=== PATIENT | male | born 1950 | race Caucasian/White ===

== ENCOUNTER 2021-07-01 17:29 | Inpatient (IN) | payer BC ==
[~2021-07-01] VITALS: Ht 182.9 cm; Wt 77.1 kg
[2021-07-01 17:30] VITALS: BP_SYST 140
--- NOTE | 2021-07-01 17:35 | NUR ---
PT TRIAGED IN PERSONAL VAN, PT IS COVID + AND NO ROOMS ARE AVAILABLE IN ER AT THIS TIME. FAMILY WITH PT.
[2021-07-01] MEDS ORDERED: ACET325T RC (18:52)
[2021-07-01] MEDS ORDERED: BISA5TAB10 PR (18:52)
[2021-07-01] MEDS ORDERED: PROC10TA13 PO (18:52)
[2021-07-01] MEDS ORDERED: LOSA25TA3 PO (18:52)
[2021-07-01] MEDS ORDERED: TRAZ-250 PO ×2 (18:52→23:50)
[2021-07-01] MEDS ORDERED: LORA-258 PO (18:52)
[2021-07-01] MEDS ORDERED: DILR3 IJ (18:52)
--- NOTE | 2021-07-01 18:52 | NUR ---
Medication reconciliation completed with information provided by Dr. Barraza. Any prior medication reconciliation on file was reviewed and corrected.
--- NOTE | 2021-07-01 19:40 | NUR ---
Received report from Gaetano KLINE Pt resting comfortably in bed VSS NAD at this time Will continue to monitor
[2021-07-01 20:13] LABS: ANION GAP 11 (5-15); CALCIUM 9.7 mg/dL (8.4-11.0); CHLORIDE 105 mmol/L (98-107); CREATININE 1.15 mg/dL (0.55-1.30); GLUCOSE 108 mg/dL (70-99); POTASSIUM 4.4 mmol/L (3.5-5.1); SODIUM SERUM 144 mmol/L (136-145); UREA NITROGEN, BLOOD 34 mg/dL (8-21)
[2021-07-01 20:14] LABS: GFR AFRICAN AMERICAN 81 mL/min (>90)
[2021-07-01] MEDS ORDERED: NACL 0.9% 1,000 ML IV ONE (20:15)
[2021-07-01 20:21] LABS: ALANINE AMINOTRANSFERASE 26 U/L (12-78); ALBUMIN 3.2 g/dL (3.4-4.8); ASPARTATE AMINOTRANSFERASE 23 U/L (10-37); LACTATE DEHYDROGENASE 214 U/L (85-227)
[2021-07-01 20:43] LABS: BASOPHILS % (AUTO) 0.7 % (0.0-2.0); HEMATOCRIT 40.5 % (36-54); HEMOGLOBIN 12.9 g/dL (14.0-18.0); LYMPHOCYTES # (AUTO) 0.8 K/uL (1.0-5.5); MEAN CORPUSCULAR HEMOGLOBIN 28 pg (27-31); MEAN CORPUSCULAR HGB CONC 32 % (32-36); MEAN CORPUSCULAR VOLUME 86 fL (79.0-98.0); MONOCYTES # (AUTO) 0.4 K/uL (0.0-1.0); MONOCYTES % (AUTO) 9.2 % (1.7-9.3); NEUTROPHILS # (AUTO) 3.5 K/uL (1.8-7.7); NEUTROPHILS % (AUTO) 74.1 % (40.0-70.0); PLATELET COUNT (AUTO) 202 K/uL (130-430); WHITE BLOOD COUNT (AUTO) 4.7 K/uL (4.8-10.8)
[2021-07-01 20:50] LABS: C-REACTIVE PROTEIN QUANT 2.8 mg/dL (0-0.5); TOTAL BILIRUBIN 0.2 mg/dL (0.0-1.0)
[2021-07-01 21:09] LABS: PROTHROMBIN TIME 10.8 SECS (9.5-12.5)
--- NOTE | 2021-07-01 21:29 | NUR ---
Received critical lab value from Mando Alvares @[id number]
[2021-07-01] MEDS ORDERED: AZITHROMYCIN 500 MG in NS 250 ML IV ONE (22:45)
[2021-07-01] MEDS ORDERED: DEXAMETHASONE SOD PHOSPHATE 4 MG/ML VIAL IVP ONE (22:45)
[2021-07-01] MEDS ORDERED: cefTRIAXone 1 GM IVPB PREMIX 50 ML IV ONE (22:45)
--- NOTE | 2021-07-01 23:06 | NUR ---
Received admitting orders from Dr. Diaz Tele Acute COVID, PNA 2L NC O2 D5 1/2NS 20MEQ KCL 100ml/hr Orders noted and carried out
--- NOTE | 2021-07-01 23:08 | NUR ---
Admit bed requested Patient will be admitted to care of Dr. Diaz Admitted to tele unit. Diagnosis: Acute COVID , PNA Inpatient (Yes or No) yes Observation (Yes or No) No Orientation concerns or request close to nursing station (Yes or No) No Covid Status + On vent or bipap No Isolation requirements COVID + Needs a sitter No From Home (Yes or if No enter name of facility) Home Requires Dialysis (Yes or No) No Med Rec Completed (Yes of No) no
[2021-07-01] MEDS ORDERED: KCL 20 mEq in D5/0.45NS 1000mL 1,000 ML IV SCH (23:15)
[2021-07-01] MEDS ORDERED: AZITHROMYCIN 500 MG/VIAL (ZITHROMAX) IV ONE (23:18)
[2021-07-01] MEDS ORDERED: [UNRECOGNIZED DRUG - CODE] IJ (23:41)
[2021-07-01] MEDS ORDERED: LOSA1TAB40 PO (23:41)
[2021-07-01] MEDS ORDERED: ALBUTEROL MDI INHALATION 8 GM INH INH PRN (23:45)
[2021-07-01] MEDS ORDERED: ENOXAPARIN SODIUM 40 MG/0.4 ML SYRINGE SUBCUT SCH (23:45)
[2021-07-01] MEDS ORDERED: HYDR-3919 PO (23:50)
[2021-07-01] MEDS ORDERED: LORA-259 PO (23:50)
[2021-07-02] VITALS (16 sets, daily range): BP systolic 127–157
[2021-07-02] MEDS ORDERED: ACETAMINOPHEN 650 MG SUPP.RECT RC PRN
--- NOTE | 2021-07-02 00:28 | NUR ---
Pt resting comfortably in bed AOX0 VSS NAD at this time Pending tele admission
--- NOTE | 2021-07-02 00:30 | NUR ---
pt admitted to room 123b. Pt in non verbal unable to make needs known. rr even and unlabored on 2l na. hob elevated. bed rails upx3. bed alarm on. pt on droplet precautions due to pt being covid positive. All other needs meet at this time. Will continue to monitor.
--- NOTE | 2021-07-02 01:14 | NUR ---
Pt admitted to tele 123b Nurse Velasquez at bedside
--- NOTE | 2021-07-02 02:00 | NUR ---
pt o2 sat 85-90 on 2L nc. Rt placed pt on High Flow 20L 45%. pt has open wounds to L ankle and R foot big toe. wound consult ordered.
--- NOTE | 2021-07-02 02:22 | NUR ---
CONSULTATION PAGED/CALLED Reason for Consultation: COVID 19 INFECTION Person Who was Notified: LISA Consulting Physician: CORINNA Motorcycle Tester Specialty: Ordering Physician: BRYANT
--- NOTE | 2021-07-02 06:00 | NUR ---
PT O2 SAT 85-88%. RT PAGED TO ASSESS PT O2.
[2021-07-02 07:08] LABS: BASOPHILS % (AUTO) 0.3 % (0.0-2.0); HEMATOCRIT 39.2 % (36-54); HEMOGLOBIN 12.4 g/dL (14.0-18.0); LYMPHOCYTES # (AUTO) 0.6 K/uL (1.0-5.5); LYMPHOCYTES % (AUTO) 11.1 % (20.5-51.5); MEAN CORPUSCULAR HEMOGLOBIN 27 pg (27-31); MEAN CORPUSCULAR HGB CONC 32 % (32-36); MEAN CORPUSCULAR VOLUME 87 fL (79.0-98.0); MONOCYTES # (AUTO) 0.2 K/uL (0.0-1.0); MONOCYTES % (AUTO) 4.3 % (1.7-9.3); NEUTROPHILS # (AUTO) 4.9 K/uL (1.8-7.7); NEUTROPHILS % (AUTO) 84.3 % (40.0-70.0); PLATELET COUNT (AUTO) 201 K/uL (130-430); RED BLOOD CELL COUNT(AUTO) 4.52 MIL/uL (4.2-6.2); RED CELL DISTRIBUTION WIDTH 14.7 % (9.0-15.0); WHITE BLOOD COUNT (AUTO) 5.8 K/uL (4.8-10.8)
--- NOTE | 2021-07-02 07:55 | NUR ---
PAGED DR HURTADO TO INFORM RE PT STATUS. PT IS GETTING O2 VIA HF AT 70% WITH O2 SAT OF 92% pLUS 15 PER VENTI MASK. NEW ORDERS RECEIVED AND CARRIED OUT.
[2021-07-02 08:13] LABS: CALCIUM 9.5 mg/dL (8.4-11.0); CREATININE 0.71 mg/dL (0.55-1.30); POTASSIUM 4.1 mmol/L (3.5-5.1)
--- NOTE | 2021-07-02 08:13 | NUR ---
CONSULTATION PAGED/CALLED Reason for Consultation: [] RESP FAIL Person Who was Notified: [] DR Maxim YORK Consulting Physician: [] DR Maxim YORK Caustic Preparer Specialty: [] PULMO Ordering Physician: [] DR HURTADO
--- NOTE | 2021-07-02 08:30 | NUR ---
DR YORK WAS HERE INFORMED MD OF 02 SAT AT 92 WITH 70% hf (30LI) AND 15 LI VENTI MASK. SEEN PATIENT.
[2021-07-02] MEDS: CHOLECALCIFEROL (VITAMIN D3) 5,000 UNIT TABLET PO SCH (09:00)
--- NOTE | 2021-07-02 09:07 | NUR ---
PT ON 100% 40LI HIGH FLOW , O2 SAT 91-93%.
[2021-07-02] MEDS: ENOXAPARIN SODIUM 30 MG/0.3 ML SYRINGE SUBCUT SCH ×2 (09:47→22:16)
[2021-07-02] MEDS: DEXAMETHASONE SOD PHOSPHATE 10 MG/ML VIAL IVP SCH ×2 (09:49→22:15)
--- NOTE | 2021-07-02 10:42 | NUR ---
PT'S CALLED. SHE WAS UPDATED WITH PT'S STATUS.
[2021-07-02] MEDS ORDERED: TOCILIZUMAB 400 MG in NS 100 ML IV ONE (11:00)
--- NOTE | 2021-07-02 12:00 | NUR ---
PT TRANSFERRED TO ICU BED 1, ENDORSED TO RAISA COURTNEY. PT ON STABLE CONDITION. STILL ON HIGH FLOW 100%.
--- NOTE | 2021-07-02 12:01 | NUR ---
received report from [facility] RN using SBAR method for continuity of care, patient is on venturi mask 15L, high flow 40L 100%, no signs of acute distress noted at this time, bed locked at lowest position, fall and safety precaution in place, will continue to monitor.
[2021-07-02] MEDS: KCL 20 mEq in D5/0.45NS 1000mL 1,000 ML IV SCH ×2 (12:20→22:19)
[2021-07-02 18:13] LABS: PROTHROMBIN TIME 10.7 SECS (9.5-12.5)
--- NOTE | 2021-07-02 19:20 | NUR ---
Opening notes Received report from endorsing morning shift RN for continuity of care. Patient is lying in bed in no signs of distress with IVF KChl 20mEq in D5 1/2NS @100 mL/hr. Patient's vital signs blood pressure 134/86, respirations 18, heart rate 50, and SPO2 99% in nonrebreather mask @ 15L. Bed is locked and in lowest position, fall and safety precautions is in place.
--- NOTE | 2021-07-02 22:00 | NUR ---
CXR completed to verify picc line. Per Picc line nurse Sukh, picc line EDI ok to use.
[2021-07-02] MEDS: AZITHROMYCIN 500 MG in NS 250 ML IV SCH (22:18)
[2021-07-02] MEDS: cefTRIAXone 1 GM in D5W 50 ML IV SCH (22:18)
[2021-07-02] MEDS ORDERED: DEXAMETHASONE SOD PHOSPHATE 10 MG/ML VIAL IVP SCH (22:45)
[2021-07-03] VITALS (25 sets, daily range): BP systolic 118–178
[2021-07-03 07:08] LABS: HEMATOCRIT 37.6 % (36-54); HEMOGLOBIN 12.3 g/dL (14.0-18.0); LYMPHOCYTES # (AUTO) 0.6 K/uL (1.0-5.5); LYMPHOCYTES % (AUTO) 7.9 % (20.5-51.5); MEAN CORPUSCULAR HEMOGLOBIN 29 pg (27-31); MEAN CORPUSCULAR HGB CONC 33 % (32-36); MEAN CORPUSCULAR VOLUME 87 fL (79.0-98.0); MONOCYTES # (AUTO) 0.3 K/uL (0.0-1.0); MONOCYTES % (AUTO) 3.6 % (1.7-9.3); NEUTROPHILS # (AUTO) 6.6 K/uL (1.8-7.7); NEUTROPHILS % (AUTO) 88.5 % (40.0-70.0); PLATELET COUNT (AUTO) 189 K/uL (130-430); RED BLOOD CELL COUNT(AUTO) 4.33 MIL/uL (4.2-6.2); RED CELL DISTRIBUTION WIDTH 14.6 % (9.0-15.0); WHITE BLOOD COUNT (AUTO) 7.4 K/uL (4.8-10.8)
[2021-07-03 08:37] LABS: ALBUMIN 2.7 g/dL (3.4-4.8); CALCIUM 8.9 mg/dL (8.4-11.0); CREATININE 0.65 mg/dL (0.55-1.30); POTASSIUM 4.4 mmol/L (3.5-5.1); TOTAL BILIRUBIN 0.1 mg/dL (0.0-1.0)
[2021-07-03] MEDS: DEXAMETHASONE SOD PHOSPHATE 10 MG/ML VIAL IVP SCH ×2 (08:53→20:57)
[2021-07-03] MEDS: CHOLECALCIFEROL (VITAMIN D3) 5,000 UNIT TABLET PO SCH (08:53)
[2021-07-03] MEDS: ENOXAPARIN SODIUM 30 MG/0.3 ML SYRINGE SUBCUT SCH ×2 (08:54→20:58)
[2021-07-03] MEDS: BALSAM PERU/CASTOR OIL 56.7 GM OINT...G. TP SCH (08:56)
--- NOTE | 2021-07-03 10:35 | NUR ---
FAMILY PT'S CALLED OVER THE PHONE, UPDATE ON HIS STATUS GIVEN. SHE WANTED TO SPEAK TO THE MARKER HAND, CALL TRANSFERRED TO [facility].
--- NOTE | 2021-07-03 11:10 | NUR ---
ELEV BP PAGED DR ALEXANDRE AND HE RETURNED THE CALL. REPORTED PT'S BLOOD PRESSURE 168/104, 150/97, PT'S HOME MEDS HAVE NOT BEEN TAKEN OR ORDERED. STATED HE WILL COME IN TO SEE THE PATIENT.
--- NOTE | 2021-07-03 11:29 | NUR ---
CM: s/w spouse/Wiam: Updated POC currently pt is in ICU with positive Covid and on o2 high flow 15 L. Said " the pt was on hospice but revoked . She requested pt going to snf [facility]. Spouse is recovering from Covid infection and is in home quarantine as well. I provided phone # to call ICU nurse/ CM for day to day update on the pt's status.
--- NOTE | 2021-07-03 12:08 | NUR ---
Dietitian Recommendations * Consider ST swallow eval * Consider EN support if PO diet is not indicated LP, RD Please refer to Nutrition Assessment for details. Addendum: 07/03/21 at [address] Amended: Links added.
[2021-07-03] MEDS ORDERED: TOCILIZUMAB 600 MG in NS 100 ML IV ONE (12:30)
--- NOTE | 2021-07-03 12:40 | NUR ---
MD DR ALEXANDRE AT BEDSIDE EXAMINING PT.
[2021-07-03] MEDS: KCL 20 mEq in D5/0.45NS 1000mL 1,000 ML IV SCH (12:46)
--- NOTE | 2021-07-03 12:50 | NUR ---
LUNCH. PT CONSUMED 25% PUREED PORK CHOPS, PUREED SQUASH, MASHED POTATOES WITH GRAVY, HALF A CUP OF STRAIN POTATO SOUP, ALMOST A CUP OF PUREED PEARS.
[2021-07-03] MEDS ORDERED: LOSARTAN POTASSIUM 50 MG TABLET (COZAAR) PO ONE (14:00)
--- NOTE | 2021-07-03 14:08 | NUR ---
pt placed on hi flow per dr polanco. 40%@30l, sat 94% hr 87 rr 25. rn aware, will cont to monitor. Addendum: 07/03/21 at 1409 by Mery Do RT Amended: Links added.
--- NOTE | 2021-07-03 14:17 | NUR ---
ELEV BP. MEDICATED PT WITH COZAAR 50 MG TAB, MIXED WITH ENSURE. PT TOLERATED WELL.
--- NOTE | 2021-07-03 18:07 | NUR ---
DIET SERVED DINNER TRAY AND FED PT, HE CONSUMED 30% OF PUREED CHERRI VEG, PARISH STEAK, MASHED POTATOES WITH GRAVY, OVER HALF CUP OF STRAIN CREAM CHICKEN, HALF A BOTTLE OF STRAWBERRY ENSURE, A CUP OF VANILLA ICE CREAM.
--- NOTE | 2021-07-03 19:10 | NUR ---
Opening notes Received report from endorsing morning shift RN for continuity of care. Patient is lying in bed with no signs of distress with IVF KChl 20mEq in D5 1/2 NS @ 100 mL/hr connected to the RU PICC line. PICC line is clean and dry. Patient's vital signs blood pressure 149/87, heart rate 88, respirations 26, and SPO2 96% with high flow nasal cannula 40% 30L. Bed is locked and in lowest position, fall and safety precautions is in place.
--- NOTE | 2021-07-03 20:55 | NUR ---
Called Dr. Elam for orders regarding patient's blood pressure. Dr. Elam called back at 2121, new order given.
[2021-07-03] MEDS ORDERED: cloNIDine HCL 0.1 MG TABLET PO SCH (21:30)
[2021-07-03] MEDS: cloNIDine HCL 0.1 MG TABLET PO SCH (22:41)
[2021-07-03] MEDS: cefTRIAXone 1 GM in D5W 50 ML IV SCH (22:41)
[2021-07-03] MEDS: AZITHROMYCIN 500 MG in NS 250 ML IV SCH (22:42)
[2021-07-03] MEDS: LORazepam 2 MG/ML VIAL IVP PRN (23:27)
[2021-07-04] VITALS (24 sets, daily range): BP systolic 125–171
[2021-07-04] MEDS: KCL 20 mEq in D5/0.45NS 1000mL 1,000 ML IV SCH ×3 (02:55→23:17)
[2021-07-04] MEDS: cloNIDine HCL 0.1 MG TABLET PO SCH ×4 (05:27→20:25)
[2021-07-04 06:34] LABS: BASOPHILS % (AUTO) 0.2 % (0.0-2.0); HEMATOCRIT 35.6 % (36-54); HEMOGLOBIN 11.6 g/dL (14.0-18.0); LYMPHOCYTES # (AUTO) 0.6 K/uL (1.0-5.5); MEAN CORPUSCULAR HEMOGLOBIN 28 pg (27-31); MEAN CORPUSCULAR HGB CONC 33 % (32-36); MEAN CORPUSCULAR VOLUME 86 fL (79.0-98.0); MONOCYTES # (AUTO) 0.2 K/uL (0.0-1.0); MONOCYTES % (AUTO) 2.5 % (1.7-9.3); NEUTROPHILS % (AUTO) 88.3 % (40.0-70.0); PLATELET COUNT (AUTO) 169 K/uL (130-430); RED BLOOD CELL COUNT(AUTO) 4.12 MIL/uL (4.2-6.2); RED CELL DISTRIBUTION WIDTH 14.7 % (9.0-15.0); WHITE BLOOD COUNT (AUTO) 6.8 K/uL (4.8-10.8)
[2021-07-04 08:04] LABS: ALBUMIN 2.6 g/dL (3.4-4.8); CALCIUM 8.7 mg/dL (8.4-11.0); CREATININE 0.68 mg/dL (0.55-1.30); POTASSIUM 4.2 mmol/L (3.5-5.1); TOTAL BILIRUBIN 0.2 mg/dL (0.0-1.0)
[2021-07-04] MEDS: LOSARTAN POTASSIUM 50 MG TABLET (COZAAR) PO SCH (08:24)
[2021-07-04] MEDS: CHOLECALCIFEROL (VITAMIN D3) 5,000 UNIT TABLET PO SCH (08:24)
[2021-07-04] MEDS: DEXAMETHASONE SOD PHOSPHATE 10 MG/ML VIAL IVP SCH ×2 (08:26→20:25)
[2021-07-04] MEDS: ENOXAPARIN SODIUM 30 MG/0.3 ML SYRINGE SUBCUT SCH ×2 (08:27→20:26)
[2021-07-04] MEDS: BALSAM PERU/CASTOR OIL 56.7 GM OINT...G. TP SCH (09:00)
[2021-07-04] MEDS: LORazepam 2 MG/ML VIAL IVP PRN (17:31)
--- NOTE | 2021-07-04 19:24 | NUR ---
Opening Notes: Got bedside report from Vera, patient was asleep. D5 1/2 NS running at 100 mL/hr, on 3 L NC, suction is working, bed at the lowest level, appropriate side rails up, call light within reach.
[2021-07-04] MEDS: AZITHROMYCIN 500 MG in NS 250 ML IV SCH (22:18)
[2021-07-04] MEDS: cefTRIAXone 1 GM in D5W 50 ML IV SCH (23:08)
[2021-07-05] VITALS (25 sets, daily range): BP systolic 126–174
[2021-07-05] MEDS: cloNIDine HCL 0.1 MG TABLET PO SCH ×3 (00:22→12:00)
--- NOTE | 2021-07-05 07:22 | NUR ---
Closing notes: Gave bedside report to Freddie, patient is calm and sleeping, changed dressing last night, patient had 3 BM and 6 voids, patient ate 75% of his dinner, D5 1/2 with 20 MEQ potassium NS running at 100 mL, on 3 L of oxygen, bed at the lowest level, oxygen and suction working, appropriate side rails up, brakes are locked.
[2021-07-05 08:47] LABS: ALBUMIN 2.6 g/dL (3.4-4.8); CREATININE 0.54 mg/dL (0.55-1.30); POTASSIUM 4.5 mmol/L (3.5-5.1); TOTAL BILIRUBIN 0.3 mg/dL (0.0-1.0)
[2021-07-05] MEDS: CHOLECALCIFEROL (VITAMIN D3) 5,000 UNIT TABLET PO SCH (08:57)
[2021-07-05] MEDS: ENOXAPARIN SODIUM 30 MG/0.3 ML SYRINGE SUBCUT SCH ×2 (08:57→21:04)
[2021-07-05] MEDS: DEXAMETHASONE SOD PHOSPHATE 10 MG/ML VIAL IVP SCH ×2 (08:57→21:03)
[2021-07-05] MEDS: KCL 20 mEq in D5/0.45NS 1000mL 1,000 ML IV SCH ×2 (08:59→17:12)
[2021-07-05] MEDS: BALSAM PERU/CASTOR OIL 56.7 GM OINT...G. TP SCH (08:59)
[2021-07-05] MEDS: LOSARTAN POTASSIUM 50 MG TABLET (COZAAR) PO SCH ×2 (08:59→21:02)
[2021-07-05] MEDS: PANTOPRAZOLE SODIUM 40 MG TAB PO SCH (09:00)
--- NOTE | 2021-07-05 11:10 | NUR ---
Pt AOx1. Pt is very contracted and needs to be fed/turned. Pt seemed to tolerate diet but was unwilling to eat certain foods. Recommend a swallow eval for pt. Pt does not blink to yes or no questions or nod head to questions. Difficulty communicating with pt. Pt is aphasic. Vital signs are stable except for HR (bradycardic) but appears to be asymptomatic. Blood pressure stable.
--- NOTE | 2021-07-05 14:47 | NUR ---
LADIES' HAT TRIMMER DR RICCI AT BEDSIDE, EXAMINED PT. PT'S STATUS MAY BE DOWNGRADED IF OK WITH PMD.
--- NOTE | 2021-07-05 15:30 | NUR ---
WOUND EVALUATION: Late note for 07/05/2021 at 1530 secondary to patient care. Wound Consult received from . Thank you, , for the consult. Patient received in a [place] Bed, awake, confused, aphasic. Patient is unable to turn in bed independently. David Score is a 10. Past Medical History: Hypertension, CVA, Parkinson's disease, Dementia. Recent Labs: WBC 6.8, RBC 4.12, hemoglobin 11.6, hematocrit 35.6, BUN 19, creatinine 0.54, glucose 142, calcium 8.0, alkaline phosphatase 43, albumin 2.6, D-dimer 2590, fibrinogen 442. Microbiology: Blood culture results x2 in progress. Rapid results indicated positive for Covid-19. Intrinsic factors that delay wound healing: Hypoalbuminemia, hyperglycemia, COVID-19. Extrinsic factors that delay wound healing: Immobility. Wound Assessment: 1, Right Great Toe: Unstageable pressure ulcer, present on admission. Wound bed has 100% black tissue. No odor, no drainage. Periwound intact. Wound measures 1.1 cm x 1.1 cm. Recommend: [place] site with Betadine. Allowed to air dry. Perform site care daily. 2. Right Lateral Malleolus: Unstageable pressure ulcer, present on admission. Wound bed has 70% pink tissue, 25% yellow tissue, 10% black tissue. No odor, no drainage. Periwound intact. Wound measures 4.4 cm x 1.7 cm x 0.1 cm. Recommend: Cleanse wound with normal saline. Apply moisture barrier cream to periwound. Apply Venelex ointment to wound bed. Cover with foam dressing. Perform wound care daily, and as needed for dressing soiling or dislodgment. Offload site at all times. 3. SacralCoccygeal area: Stage II pressure ulcer, present on admission. Wound bed has 100% red tissue. No odor, no drainage. Periwound intact. Wound measures 0.2 cm x 0.2 cm. Recommend: Cleanse wound with normal saline. Apply moisture barrier cream to periwound. Apply Venelex ointment to wound bed. Cover with foam dressing. Perform wound care daily, and as needed for dressing soiling or dislodgment. Offload involved area with pillows at all times. Also recommend: Reposition patient side to side only every 2 hours with one pillow underneath left pelvis and one pillow underneath right pelvis (facilitate turning by placing additional pillow underneath left pelvis for 2 hours, then rotate same pillow and place underneath right pelvis for 2 hours, repeat side to side every 2 hours. Off-load pressure areas with pillows for pressure re-distribution. Offload, elevate and float bilateral heels with one pillow lengthwise under each extremity at all times. Perform skin care and monitor skin integrity Q shift. Use moisture barrier cream on buttocks and other moisture susceptible areas QID and as needed for soiling. Place patient on a low air-loss mattress.
--- NOTE | 2021-07-05 15:39 | NUR ---
Tobacco Feeder Catcher In an effort to clarify previous hospice provider information, BORA Cordoba contacted patient's Chiquita . Chiquita shared the following; -Patient was receiving hospice care at home from [facility] -According to patient's , PCP Dr. West ([facility] [phone]) would like patient to be transferred to SNF when stable for discharge. - Patient's resides in [place], and due to struggles with driving long distances, she is requesting for SNF placement to be close to home if available - Patient's also shared PCP requested to speak to treating or discharging doctor to discuss discharge plans when available. SKIN FORMER will continue to be available as needed
--- NOTE | 2021-07-05 16:48 | NUR ---
ST EVALUATION COMPLETED. ST TX NOT INDICATED AT THIS TIME. RECOMMEND ALTERNATIVE MEANS OF NUTRITION DUE TO DECREASED SWALLOW FUNCTION AND SAFETY. PT MAY TOLERATE SMALL PORTIONS OF PUREE/THIN LIQUID FOR ORAL GRATIFICATION WITH 1:1 FEEDER AND FULL ASPIRATION PRECAUTIONS
[2021-07-05] MEDS: hydrALAZINE HCL 20 MG/ML VIAL IVP PRN (18:27)
--- NOTE | 2021-07-05 19:20 | NUR ---
OPENING NOTES: RECEIVED BEDSIDE REPORT FROM SRAVANI. PATIENT IS AWAKE, PATIENT HAS BEEN SWEATING AND SHAKING, D5 1/2 NS WITH 20 MEQ OF POTASSIUM RUNNING AT 100 ML/HR, DRESSINGS WERE CHANGED BY SRAVANI AND RAMÓN JARAMILLO 2L, BED AT THE LOWEST LEVEL, BRAKES ARE LOCKED, APPROPRIATE SIDE RAILS UP, CALL LIGHT WITHIN REACH.
--- NOTE | 2021-07-05 19:28 | NUR ---
WOODENWARE ASSEMBLER STATES PT SHOULD GET ALTERNATIVE NUTRITION WELL BEING FED FOR ORAL GRATIFICATION, PERHAPS A PEG FOR CONTINUOUIS FEEDS/PT TOLERATES FOOD BUT DIFFICULT TO TELL IF HE ASPIRAES, COUGH IS WEAK.//MW
--- NOTE | 2021-07-05 20:15 | NUR ---
PATIENT IS DIAPHORETIC AND SHAKING, TEMP WAS 98.7 WITH THE TEMPORAL THERMOMETER, GAVE THE PATIENT A PARTIAL BED BATH WITH COOL WATER, SUCTIONED PATIENT MOUTH, PATIENT WAS VERY AGITATED AND GROANING.
[2021-07-05] MEDS: LORazepam 2 MG/ML VIAL IVP PRN (20:48)
[2021-07-05] MEDS: AZITHROMYCIN 500 MG in NS 250 ML IV SCH (22:04)
[2021-07-05] MEDS: cefTRIAXone 1 GM in D5W 50 ML IV SCH (22:44)
[2021-07-06] VITALS (21 sets, daily range): BP systolic 119–160
[2021-07-06] MEDS: KCL 20 mEq in D5/0.45NS 1000mL 1,000 ML IV SCH ×3 (05:10→23:53)
[2021-07-06 06:32] LABS: ALBUMIN 2.7 g/dL (3.4-4.8); CALCIUM 8.5 mg/dL (8.4-11.0); CREATININE 0.58 mg/dL (0.55-1.30); POTASSIUM 4.4 mmol/L (3.5-5.1); TOTAL BILIRUBIN 0.4 mg/dL (0.0-1.0)
[2021-07-06 07:09] LABS: BASOPHILS % (AUTO) 0.1 % (0.0-2.0); HEMATOCRIT 38.9 % (36-54); HEMOGLOBIN 12.8 g/dL (14.0-18.0); LYMPHOCYTES # (AUTO) 0.8 K/uL (1.0-5.5); LYMPHOCYTES % (AUTO) 12.8 % (20.5-51.5); MEAN CORPUSCULAR HEMOGLOBIN 28 pg (27-31); MEAN CORPUSCULAR HGB CONC 33 % (32-36); MEAN CORPUSCULAR VOLUME 85 fL (79.0-98.0); MONOCYTES # (AUTO) 0.2 K/uL (0.0-1.0); MONOCYTES % (AUTO) 3.4 % (1.7-9.3); NEUTROPHILS % (AUTO) 83.7 % (40.0-70.0); PLATELET COUNT (AUTO) 170 K/uL (130-430); RED BLOOD CELL COUNT(AUTO) 4.56 MIL/uL (4.2-6.2); RED CELL DISTRIBUTION WIDTH 14.1 % (9.0-15.0); WHITE BLOOD COUNT (AUTO) 5.9 K/uL (4.8-10.8)
--- NOTE | 2021-07-06 07:38 | NUR ---
INITIAL BED SIDE SHIFT REPORT RECEIVED FROM NIGHT RN FOR CONTINUITY OF CARE
[2021-07-06] MEDS: PANTOPRAZOLE SODIUM 40 MG TAB PO SCH (08:29)
[2021-07-06] MEDS: DEXAMETHASONE SOD PHOSPHATE 10 MG/ML VIAL IVP SCH ×2 (08:29→21:52)
[2021-07-06] MEDS: CHOLECALCIFEROL (VITAMIN D3) 5,000 UNIT TABLET PO SCH (08:29)
[2021-07-06] MEDS: LOSARTAN POTASSIUM 50 MG TABLET (COZAAR) PO SCH ×2 (08:31→21:53)
[2021-07-06] MEDS: ENOXAPARIN SODIUM 30 MG/0.3 ML SYRINGE SUBCUT SCH ×2 (08:35→21:56)
[2021-07-06] MEDS: BALSAM PERU/CASTOR OIL 56.7 GM OINT...G. TP SCH (09:00)
[2021-07-06] MEDS ORDERED: hydrALAZINE HCL 20 MG/ML VIAL IVP ONE (09:30)
[2021-07-06] MEDS ORDERED: hydrALAZINE HCL 20 MG/ML VIAL IVP PRN (09:30)
--- NOTE | 2021-07-06 11:12 | NUR ---
TRANSFER UPDATE TRANSFERRED PT TO [facility], RM 105A BEDSIDE SHIFT REPORT GIVEN TO SWEETIE RN, MARISA KLINE. PT IS A&O X4 & ON ROOM AIR, O2 SAT 94%; VSs ARE WNR, AFEBRILE. NO S&S OF DISTRESS & NO PAIN (VERBALIZED). Addendum: 07/06/21 at 1407 by Daya Stroud RN INFORMATIONS/DATA ENTERED IN INCORRECT PT
[2021-07-06] MEDS: LORazepam 2 MG/ML VIAL IVP PRN ×3 (11:56→20:28)
--- NOTE | 2021-07-06 14:02 | NUR ---
Dietitian Recommendations * Continue puree diet for oral gratification. * Monitor provision of EN support. * Consider Glucerna 1.5 @65 mL/hr w/ free water flush 200 mL Q4h Provides: 2340 kcals/day, 129 g protein/day and 2384 mL free water/day Meets: 101% of lower kcal requirements, 111% of upper protein requirements and 104% of lower fluid requirements. Please refer to Nutrition F/U note for details. Signed: 07/06/21 at 1403 by Hortencia DUNCAN <Co-Signature Required> Co-Signed: 07/06/21 at [address]
--- NOTE | 2021-07-06 14:02 | NUR ---
Nutrition F/U Admitting Diagnosis Acute COVID, pulmonary nodular amyloidosis Reviewed Pertinent Medical/Surgical Hx Medical Record Other Medical History Comment: PMH: CVA, dementia, and Parkinson's Dz per physician notes Pt also found w/ severe COVID-19 pneumonia and hypoxia per physician notes SARS-CoV-2 Ag (Rapid) Positive 07/[address] bedside visit deferred d/t COVID airborne isolation precautions. Per EMR review, pt on 2 L NC. David score 10, wounds noted on L ankle, posterior coccyx and R toe. Abdomen is soft w/ hyperactive BS. LBM x7 07/05. Pt w/ poor PO intake of 27% x7 meal records. Pt had swallow evaluation on 07/05, ST recommends alternate means of nutrition w/ small amounts of puree/thin liquids and 1:1 feeder for oral gratification. Per ICU rounds, pt is nonverbal, no drips, and has cardiology consult d/t arrhythmias. Pt is not eating well and refusing medications w/ applesauce. Pt was previously in hospice care, RN to ask pts family if they want GT placement. Pt is not yet meeting nutritional needs. Current Diet Order/Nutrition Support NPO x1 day Patient/Significant Other Unable To Verbalize Education Provided Not Indicated Pertinent Medications remdesivir, lovenox, decadron, zinc, VIT D3, KCl/D5%/1/2NS at 100 ml/hr, protonix Pertinent Labs Na 134 L, BG 122 H, Alb 2.7 L Height (Feet) 6 feet Height (Inches) 0.00 inches Weight (Pounds) 170 pounds no changes since 07/03 Weight (Calculated Kilograms) 77.737497 kilograms Patient Weight 77.111 kg Body Mass Index 23.05 kg/m2 %IBW 96 [place]/Adjusted Body Weight 178#/80.9 kg Recent Weight Change Unable to verify Weight Status Appropriate Food Allergies Unable to verify (*ongoing) Estimated Energy Expenditure (kcals/day) 1902-9421 (30-35 kcal/kg CBW d/t acute critical illness) (*ongoing) Estimated Protein Required (g/day) 93-116 (1.2-1.5 gm/kg CBW d/t acute critical illness) (*ongoing) Estimated Fluid Required (l/day) 2.3-2.7 (1 ml/kcal/day for GERIAT maintenance) Problem/Etiology/Signs/Symptoms Increased nutritional needs R/T metabolic demands AEB estimated nutritional requirements for acute critical illness. (*ongoing) Risk for aspiration R/T weakness/compromised respiratory status AEB RN report, use of NRBM, and current pureed diet order. (pt is now NPO per speech therapist recommendations) Expected Outcomes/Goals - Monitor provision of nutrition support, appetite, and PO intakes w/ goal of pt meeting at least 50% of estimated nutritional needs, labs trending WNL, normal GI function, and skin integrity/wt maintenance Dietitian Recommendations * Continue puree diet for oral gratification. * Monitor provision of EN support. * Consider Glucerna 1.5 @65 mL/hr w/ free water flush 200 mL Q4h Provides: 2340 kcals/day, 129 g protein/day and 2384 mL free water/day Meets: 101% of lower kcal requirements, 111% of upper protein requirements and 104% of lower fluid requirements. Follow Up High Risk: F/U in 2-3days Follow Up By Jul 09, 2021 Signed: 07/06/21 at 1402 by Hortencia DUNCAN <Co-Signature Required> Co-Signed: 07/06/21 at [address]
--- NOTE | 2021-07-06 14:07 | NUR ---
UPDATE RECEIVED CONSULT ORDER (MD MONTES DE OCA) FROM DR HURTADO
--- NOTE | 2021-07-06 16:32 | NUR ---
update Pt's , Chiquita, wanted to change code status to MODIFIED CODE. wishes/wants pt to have chest compression but no intubation
[2021-07-06] MEDS: hydrALAZINE HCL 20 MG/ML VIAL IVP PRN (17:26)
--- NOTE | 2021-07-06 19:23 | NUR ---
ENDORSEMENT End of shift report given to night RN for continuity of care
[2021-07-06] MEDS ORDERED: ATROPINE SULFATE 0.4 MG/ML VIAL IVP PRN (21:00)
[2021-07-06] MEDS: AZITHROMYCIN 500 MG in NS 250 ML IV SCH (23:52)
[2021-07-06] MEDS: cefTRIAXone 1 GM in D5W 50 ML IV SCH (23:52)
[2021-07-07] VITALS (24 sets, daily range): BP systolic 126–161
[2021-07-07 06:43] LABS: BASOPHILS % (AUTO) 0.3 % (0.0-2.0); HEMATOCRIT 40.4 % (36-54); HEMOGLOBIN 13.4 g/dL (14.0-18.0); LYMPHOCYTES # (AUTO) 0.5 K/uL (1.0-5.5); LYMPHOCYTES % (AUTO) 10.4 % (20.5-51.5); MEAN CORPUSCULAR HEMOGLOBIN 28 pg (27-31); MEAN CORPUSCULAR HGB CONC 33 % (32-36); MEAN CORPUSCULAR VOLUME 86 fL (79.0-98.0); MONOCYTES # (AUTO) 0.1 K/uL (0.0-1.0); MONOCYTES % (AUTO) 1.4 % (1.7-9.3); NEUTROPHILS % (AUTO) 87.9 % (40.0-70.0); PLATELET COUNT (AUTO) 168 K/uL (130-430); RED BLOOD CELL COUNT(AUTO) 4.71 MIL/uL (4.2-6.2); WHITE BLOOD COUNT (AUTO) 4.6 K/uL (4.8-10.8)
[2021-07-07 09:24] LABS: ALBUMIN 2.8 g/dL (3.4-4.8); CALCIUM 8.8 mg/dL (8.4-11.0); CREATININE 0.62 mg/dL (0.55-1.30); TOTAL BILIRUBIN 0.5 mg/dL (0.0-1.0)
[2021-07-07] MEDS: DEXAMETHASONE SOD PHOSPHATE 10 MG/ML VIAL IVP SCH (10:03)
[2021-07-07] MEDS: PANTOPRAZOLE SODIUM 40 MG TAB PO SCH (10:04)
[2021-07-07] MEDS: LOSARTAN POTASSIUM 50 MG TABLET (COZAAR) PO SCH ×2 (10:04→20:12)
[2021-07-07] MEDS: CHOLECALCIFEROL (VITAMIN D3) 5,000 UNIT TABLET PO SCH (10:05)
[2021-07-07] MEDS: THEOPHYLLINE ANHYDROUS 200 MG CAP.ER.24H PO SCH ×2 (10:05→20:12)
[2021-07-07] MEDS: ENOXAPARIN SODIUM 30 MG/0.3 ML SYRINGE SUBCUT SCH ×2 (10:06→20:14)
[2021-07-07] MEDS: BALSAM PERU/CASTOR OIL 56.7 GM OINT...G. TP SCH (10:12)
[2021-07-07] MEDS: KCL 20 mEq in D5/0.45NS 1000mL 1,000 ML IV SCH ×2 (10:15→21:01)
--- NOTE | 2021-07-07 19:25 | NUR ---
Opening Notes: Received bedside report from Juan, patient was awake, patient has an NG tube with Jevity running at 30cc and hr, skin is intact around NG tube, patient on 4 L NC, has D5 1/2 NS running at 20 MEQ potassium at 100 mL/hr, condom cath applied with clear yellow urine, peeled and peaked wound on left ankle, left toe, right toe, and sacral, new dressing applied today with pictures taken, suction working, bed at the lowest level, appropriate side rails up, call light with reach.
[2021-07-07] MEDS: LORazepam 2 MG/ML VIAL IVP PRN (23:10)
[2021-07-07] MEDS: cefTRIAXone 1 GM in D5W 50 ML IV SCH (23:10)
[2021-07-08] VITALS (25 sets, daily range): BP systolic 122–173
[2021-07-08] MEDS: KCL 20 mEq in D5/0.45NS 1000mL 1,000 ML IV SCH ×2 (07:15→16:41)
[2021-07-08 07:27] LABS: HEMATOCRIT 37.8 % (36-54); HEMOGLOBIN 12.5 g/dL (14.0-18.0); LYMPHOCYTES # (AUTO) 0.9 K/uL (1.0-5.5); MEAN CORPUSCULAR HEMOGLOBIN 28 pg (27-31); MEAN CORPUSCULAR HGB CONC 33 % (32-36); MEAN CORPUSCULAR VOLUME 85 fL (79.0-98.0); MONOCYTES # (AUTO) 0.5 K/uL (0.0-1.0); NEUTROPHILS # (AUTO) 4.4 K/uL (1.8-7.7); PLATELET COUNT (AUTO) 202 K/uL (130-430); RED BLOOD CELL COUNT(AUTO) 4.43 MIL/uL (4.2-6.2); RED CELL DISTRIBUTION WIDTH 14.4 % (9.0-15.0); WHITE BLOOD COUNT (AUTO) 5.8 K/uL (4.8-10.8)
[2021-07-08 07:36] LABS: ALBUMIN 2.7 g/dL (3.4-4.8); CALCIUM 8.7 mg/dL (8.4-11.0); CREATININE 0.6 mg/dL (0.55-1.30); POTASSIUM 3.8 mmol/L (3.5-5.1); TOTAL BILIRUBIN 0.1 mg/dL (0.0-1.0)
[2021-07-08] MEDS: PANTOPRAZOLE SODIUM 40 MG TAB PO SCH (09:45)
[2021-07-08] MEDS: THEOPHYLLINE ANHYDROUS 200 MG CAP.ER.24H PO SCH ×2 (09:45→21:40)
[2021-07-08] MEDS: BALSAM PERU/CASTOR OIL 56.7 GM OINT...G. TP SCH (09:46)
[2021-07-08] MEDS: LOSARTAN POTASSIUM 50 MG TABLET (COZAAR) PO SCH ×2 (09:46→21:40)
[2021-07-08] MEDS: CHOLECALCIFEROL (VITAMIN D3) 5,000 UNIT TABLET PO SCH (09:46)
[2021-07-08] MEDS: ENOXAPARIN SODIUM 30 MG/0.3 ML SYRINGE SUBCUT SCH ×2 (09:47→21:43)
[2021-07-08] MEDS: DEXAMETHASONE SOD PHOSPHATE 10 MG/ML VIAL IVP SCH (09:48)
--- NOTE | 2021-07-08 14:37 | NUR ---
Nutrition F/U Admitting Diagnosis Acute COVID, pulmonary nodular amyloidosis Reviewed Pertinent Medical/Surgical Hx Medical Record Primary RN Medical History Comment: PMH: CVA, dementia, and Parkinson's Dz, HTN, multiple strokes per physician notes Pt also found w/ severe COVID-19 pneumonia (improving), hypoxia and transient bradycardia per physician notes SARS-CoV-2 Ag (Rapid) Positive 07/[address] bedside visit deferred d/t COVID airborne isolation precautions. Per EMR review, pt on 4 L NC. David score 8, wounds noted on L ankle, posterior coccyx and R toe. Abdomen is soft w/ active BS. LBM x1 07/07. Pt had 10 mL GRV today. Per ICU rounds, pt is repeating covid test awaiting possible PEG placement. Pt is contracted r/t Parkinsons Dz. Current TF prescription meets only 47% of lower caloric needs and 49% of lower protein needs. Pt would benefit from increase in goal rate. Current Diet Order/Nutrition Support Jevity 1.5 @30 mL/hr, 0 mL free water flush via NGT x2 days Patient/Significant Other Unable To Verbalize Education Provided Not Indicated Pertinent Medications lovenox, decadron, zinc, VIT D3, KCl/D5%/1/2NS at 100 ml/hr, protonix Pertinent Labs Na 135 L, BG 114 H, Alb 2.7 L Height (Feet) 6 feet Height (Inches) 0.00 inches Weight (Pounds) 170 pounds no changes since 07/03 Weight (Calculated Kilograms) 77.840724 kilograms Patient Weight 77.111 kg Body Mass Index 23.05 kg/m2 %IBW 96 [place]/Adjusted Body Weight 178#/80.9 kg Recent Weight Change Unable to verify Weight Status Appropriate Food Allergies Unable to verify (*ongoing) Estimated Energy Expenditure (kcals/day) 0908-5913 (30-35 kcal/kg CBW d/t acute critical illness) (*ongoing) Estimated Protein Required (g/day) 93-116 (1.2-1.5 gm/kg CBW d/t acute critical illness) (*ongoing) Estimated Fluid Required (l/day) 2.3-2.7 (1 ml/kcal/day for GERIAT maintenance) Problem/Etiology/Signs/Symptoms Increased nutritional needs R/T metabolic demands AEB estimated nutritional requirements for acute critical illness. (*ongoing) Risk for aspiration R/T weakness/compromised respiratory status AEB RN report, use of NRBM, and current pureed diet order. (*no longer applicable) Expected Outcomes/Goals - Monitor TF tolerance and intakes w/ goal of pt meeting at least 90% of estimated nutritional needs, labs trending WNL, normal GI function, and skin integrity/wt maintenance Dietitian Recommendations Jevity 1.5 @65 mL/hr w/ 200 mL free water flush Q4h Provides: 2340 kcals/day, 100 g protein/day and 2386 mL free water/day Meets: 101% of lower caloric needs, 108% of lower protein needs and 104% of fluid needs Follow Up High Risk: F/U in 2-3 days Signed: 07/08/21 at 1438 by Hortencia DUNCAN <Co-Signature Required> Co-Signed: 07/08/21 at [address]
--- NOTE | 2021-07-08 14:38 | NUR ---
Dietitian Recommendations Jevity 1.5 @65 mL/hr w/ 200 mL free water flush Q4h Provides: 2340 kcals/day, 100 g protein/day and 2386 mL free water/day Meets: 101% of lower caloric needs, 108% of lower protein needs and 104% of fluid needs LP, RD Please refer to Nutrition F/U for details. Signed: 07/08/21 at 1439 by Hortencia DUNCAN <Co-Signature Required> Co-Signed: 07/08/21 at [address]
--- NOTE | 2021-07-08 15:20 | NUR ---
Spoke w/ patient's - She would like the patient to go to [facility] when he is stable. She would like a facility close to her home in [place], she is aware there are no SNF's in [place]. She is agreeable to a facility where Dr Diaz goes.
--- NOTE | 2021-07-08 19:30 | NUR ---
Received report and assumed care. Covid +, NC [address] tolerating well with O2 sats 92-94%. Contracted; requires frequent reposition. Condom catheter in place and draining to gravity. NGT feeding in place and infusing Jevity at 40 cc/h. will continue to monitor.
--- NOTE | 2021-07-08 20:58 | NUR ---
RT Pt was destating to 88% on 5L NC. Pt was mouth breathing and couldn't understand when I told him to breath through his nose.switched to a simle mask @ 6L and pt is now 93-94%.
--- NOTE | 2021-07-08 21:30 | NUR ---
Dr Diaz at bedside for evaluation. Information regarding GT feeding provided. Dr Diaz reported to this nurse "go easy with increasing the rate of feeding". GT feeding rate will remain at 40 tonight. patient tolerating well. Goal 65 cc/h.
[2021-07-08] MEDS: cefTRIAXone 1 GM in D5W 50 ML IV SCH (22:37)
[2021-07-09] VITALS (25 sets, daily range): BP systolic 121–159
[2021-07-09] MEDS: LORazepam 2 MG/ML VIAL IVP PRN ×2 (00:12→12:12)
--- NOTE | 2021-07-09 00:30 | NUR ---
Assessment completed; repositioned for comfort l
[2021-07-09] MEDS: KCL 20 mEq in D5/0.45NS 1000mL 1,000 ML IV SCH ×3 (03:15→23:27)
[2021-07-09 06:44] LABS: BASOPHILS % (AUTO) 0.1 % (0.0-2.0); HEMATOCRIT 41.5 % (36-54); HEMOGLOBIN 13.5 g/dL (14.0-18.0); LYMPHOCYTES # (AUTO) 0.7 K/uL (1.0-5.5); LYMPHOCYTES % (AUTO) 4.5 % (20.5-51.5); MEAN CORPUSCULAR HEMOGLOBIN 28 pg (27-31); MEAN CORPUSCULAR HGB CONC 33 % (32-36); MEAN CORPUSCULAR VOLUME 86 fL (79.0-98.0); MONOCYTES # (AUTO) 0.8 K/uL (0.0-1.0); MONOCYTES % (AUTO) 4.9 % (1.7-9.3); NEUTROPHILS # (AUTO) 14.6 K/uL (1.8-7.7); NEUTROPHILS % (AUTO) 90.5 % (40.0-70.0); PLATELET COUNT (AUTO) 217 K/uL (130-430); RED BLOOD CELL COUNT(AUTO) 4.85 MIL/uL (4.2-6.2); RED CELL DISTRIBUTION WIDTH 14.3 % (9.0-15.0); WHITE BLOOD COUNT (AUTO) 16.1 K/uL (4.8-10.8)
[2021-07-09 08:00] LABS: ALBUMIN 3.2 g/dL (3.4-4.8); CALCIUM 9.3 mg/dL (8.4-11.0); CREATININE 1.07 mg/dL (0.55-1.30); POTASSIUM 4.2 mmol/L (3.5-5.1); TOTAL BILIRUBIN 0.2 mg/dL (0.0-1.0)
[2021-07-09] MEDS ORDERED: DEXAMETHASONE SOD PHOSPHATE 10 MG/ML VIAL ONE (10:57)
[2021-07-09] MEDS: THEOPHYLLINE ANHYDROUS 200 MG CAP.ER.24H PO SCH ×2 (11:03→20:54)
[2021-07-09] MEDS: CHOLECALCIFEROL (VITAMIN D3) 5,000 UNIT TABLET PO SCH (11:04)
[2021-07-09] MEDS: PANTOPRAZOLE SODIUM 40 MG TAB PO SCH (11:05)
[2021-07-09] MEDS: LOSARTAN POTASSIUM 50 MG TABLET (COZAAR) PO SCH ×2 (11:05→20:55)
[2021-07-09] MEDS: DEXAMETHASONE SOD PHOSPHATE 10 MG/ML VIAL IVP SCH (11:07)
[2021-07-09] MEDS: ENOXAPARIN SODIUM 30 MG/0.3 ML SYRINGE SUBCUT SCH ×2 (11:09→20:54)
[2021-07-09] MEDS: BALSAM PERU/CASTOR OIL 56.7 GM OINT...G. TP SCH (11:24)
[2021-07-10] VITALS (24 sets, daily range): BP systolic 88–150
--- NOTE | 2021-07-10 02:30 | NUR ---
PT DESATURATING TO 82% SUCTIONED ORALLY OBTAINED LARGE THICK YELLOW SECRETIONS, PUT ON OXYMASK AT 10L, TURNED AND REPOSITION TO COMFORT, CLEANED AND CHANGED PAD HAD BM SMALL AMOUNT AND INCONTINENT OF URINE. STILL DESATURATING PAGED RT NT SUCTIONED DONE AND PUT ON NRB 15lL REMAINS SATING 56 SUCTIONED CONTINUED AND UNSUCCESSFULL STILL DESATURATING. RT PUT ON HFNC AT 40l 100% WITH NRB 15L BACK UP SATS REMAIN AT 62%
--- NOTE | 2021-07-10 03:23 | NUR ---
DR. NAYAN GARCIA PAGED AT THIS TIME FOR ORDERS. SPOKE WITH ALYSON AT THE EXCHANGE.
--- NOTE | 2021-07-10 03:23 | NUR ---
PAGED DR RICCI PT REMAINS SATS AT 62%. AWAITING TO REPLY.
--- NOTE | 2021-07-10 04:03 | NUR ---
AGAIN SECOND TIME PAGED DR RICCI RE-CONDITION CHANGED SATS-62 AND BP 88/55MMHG
--- NOTE | 2021-07-10 04:03 | NUR ---
DR. SPICER SECOND PAGE TO AT THIS TIME FOR ORDERS. SPOKE WITH JACQUES AT THE EXCHANGE.
--- NOTE | 2021-07-10 04:28 | NUR ---
dR Edin BAUTISTA BACK INFORMED HIM ABOUT PT CONDITION CHANGED RESPIRATORY AWARE PT IS DNI BUT MODIFIED CODE NO NEW ORDERS.
[2021-07-10 07:01] LABS: BASOPHILS % (AUTO) 0.1 % (0.0-2.0); HEMATOCRIT 41.9 % (36-54); HEMOGLOBIN 13.7 g/dL (14.0-18.0); LYMPHOCYTES # (AUTO) 0.4 K/uL (1.0-5.5); LYMPHOCYTES % (AUTO) 3.5 % (20.5-51.5); MEAN CORPUSCULAR HEMOGLOBIN 28 pg (27-31); MEAN CORPUSCULAR HGB CONC 33 % (32-36); MEAN CORPUSCULAR VOLUME 86 fL (79.0-98.0); MONOCYTES # (AUTO) 0.5 K/uL (0.0-1.0); NEUTROPHILS # (AUTO) 11.1 K/uL (1.8-7.7); NEUTROPHILS % (AUTO) 92.4 % (40.0-70.0); PLATELET COUNT (AUTO) 249 K/uL (130-430); RED BLOOD CELL COUNT(AUTO) 4.89 MIL/uL (4.2-6.2); RED CELL DISTRIBUTION WIDTH 14.5 % (9.0-15.0)
[2021-07-10 07:13] LABS: CALCIUM 9.2 mg/dL (8.4-11.0); CREATININE 0.91 mg/dL (0.55-1.30); POTASSIUM 4.6 mmol/L (3.5-5.1); TOTAL BILIRUBIN 0.2 mg/dL (0.0-1.0)
[2021-07-10] MEDS: DEXAMETHASONE SOD PHOSPHATE 10 MG/ML VIAL IVP SCH (08:07)
[2021-07-10] MEDS: LOSARTAN POTASSIUM 50 MG TABLET (COZAAR) PO SCH ×2 (08:09→20:45)
[2021-07-10] MEDS: PANTOPRAZOLE SODIUM 40 MG TAB PO SCH (08:10)
[2021-07-10] MEDS: THEOPHYLLINE ANHYDROUS 200 MG CAP.ER.24H PO SCH ×2 (08:10→20:45)
[2021-07-10] MEDS: CHOLECALCIFEROL (VITAMIN D3) 5,000 UNIT TABLET PO SCH (08:11)
[2021-07-10] MEDS: KCL 20 mEq in D5/0.45NS 1000mL 1,000 ML IV SCH ×2 (08:12→20:44)
[2021-07-10] MEDS: BALSAM PERU/CASTOR OIL 56.7 GM OINT...G. TP SCH (08:13)
[2021-07-10] MEDS: ENOXAPARIN SODIUM 30 MG/0.3 ML SYRINGE SUBCUT SCH ×2 (08:18→20:46)
--- NOTE | 2021-07-10 14:10 | NUR ---
RT NOTES Per ABG result titrated FIO2 TO 0.90. Pt. appears to tolerate well, current sat. 96-97%. Attempted @ 0.80 pt. desaturated. Sterile NTS was performed but did not improved saturation despited NRB and HFNC being on during NTS. RN made aware. Will cont. to monitor pt.
--- NOTE | 2021-07-10 15:00 | NUR ---
Nutrition F/U Admitting Diagnosis Acute COVID, pulmonary nodular amyloidosis Reviewed Pertinent Medical/Surgical Hx Medical Record Primary RN Medical History Comment: PMH: CVA, dementia, and Parkinson's Dz, HTN, multiple strokes per physician notes Pt also found w/ severe COVID-19 pneumonia (improving), hypoxia and transient bradycardia per physician notes Per EMR review 07/10: pt is doing poorly diaphoretic and SOB as well as requiring more O2; respiratory status has gotten worse overnight SARS-CoV-2 Ag (Rapid) Positive 07/01 & 07/08 Subjective Information: RD bedside visit deferred d/t COVID airborne isolation precautions. RD rounded to ICU and spoke w/ pt's primary RN outside of pt's room. RD witnessed TF infusing Jevity 1.5 at 20 ml/hr -- RN reported that d/t pt's respiratory status, TF has not yet reached goal, but that he plans to increase as pt's GRV have been OK. He also reported that he does not feel current water flush order of 200 ml Q4h is appropriate as pt is receiving KCl/D5%/NS at 100 ml/hr continuously (2400 ml/day) -- RD will make new rec for water flush order. RD relayed rec to modify pt's TF formula and add wound healing modular to provide additional antioxidants and protein to help w/ current condition; RN agreed. Per EMR review, pt is aphasic/confused/disoriented; on 40 L O2 via HFNC; abd is soft and non-distended w/ active bowel sounds; pt had a small BM last night; Jevity 1.5 TF Formula Type 07/10; TF Rate: 20 ml 07/10; GRV: 20 ml 07/10. Current Diet Order/Nutrition Support: Jevity 1.5 65 ml/hr (goal rate), Free Water Flush: 200 ml Q4h via NGT x2 days Patient/Significant Other Unable To Verbalize Education Provided Not Indicated Pertinent Medications lovenox, decadron, zinc, VIT D3, KCl/D5%/NS at 100 ml/hr (408 kcal/day), protonix Pertinent Labs WBC 12 H, Na 136 WNL, BG 136 H, ALB 3 L, BUN 23 H Height (Feet) 6 feet Height (Inches) 0.00 inches Weight (Pounds) 170 pounds no changes since 07/03 Weight (Calculated Kilograms) 77.584250 kilograms Patient Weight 77.111 kg Body Mass Index 23.05 kg/m2 %IBW 96 [place]/Adjusted Body Weight 178#/80.9 kg Recent Weight Change Unable to verify Weight Status Appropriate Food Allergies Unable to verify Estimated Energy Expenditure (kcals/day) 1608-6773 (30-35 kcal/kg CBW d/t acute critical illness) Estimated Protein Required (g/day) 93-116 (1.2-1.5 gm/kg CBW d/t acute critical illness) Estimated Fluid Required (l/day) 2.3-2.7 (1 ml/kcal/day for GERIAT maintenance) Problem/Etiology/Signs/Symptoms Increased nutritional needs R/T metabolic demands AEB estimated nutritional requirements for acute critical illness. (*Ongoing) Risk for aspiration R/T weakness/compromised respiratory status AEB RN report, use of NRBM, and current pureed diet order. (*No longer applicable) Expected Outcomes/Goals - Monitor TF tolerance and intakes w/ goal of pt meeting at least 90% of estimated nutritional needs, labs trending WNL, normal GI function, and skin integrity/wt maintenance Dietitian Recommendations * Vital AF 1.2 at 30 ml/hr, increase by 10 ml Q8h to goal of 60 ml/hr, Quique BID, Free Water Flush: 50 ml Q6h via NGT Provides (w/ current KCl/D5%/NS IV): 2296 kcal/day, 122 gm protein/day, and 3768 ml free water/day Meets (w/ current KCl/D5%/NS IV): 99% of lower end of estimated caloric needs and 105% of upper end of estimated protein needs Follow Up High Risk: F/U in 2-3 days Addendum: 07/10/21 at [address] CORRECTION: Subjective Information: RD bedside visit deferred d/t COVID airborne isolation precautions. RD rounded to ICU and spoke w/ pt's primary RN outside of pt's room. RD witnessed TF infusing Jevity 1.5 at 20 ml/hr -- RN reported that d/t pt's respiratory status, TF has not yet reached goal, but that he plans to increase as pt's GRV have been OK. He also reported that he does not feel current water flush order of 200 ml Q4h is appropriate as pt is receiving KCl/D5%/NS at 100 ml/hr continuously (2400 ml/day) -- RD will make new rec for water flush order. RD relayed rec to modify pt's TF formula and add wound healing modular to provide additional antioxidants and protein to help w/ current condition; RN agreed. Per EMR review, pt is aphasic/confused/disoriented; on 40 L O2 via HFNC; abd is soft and non-distended w/ active bowel sounds; pt had a small BM last night; Jevity 1.5 TF Formula Type 07/10; TF Rate: 20 ml 07/10; GRV: 20 ml 07/10; David scale: 9 -- Making Machine Operator note 07/05 revealed 1, Right Great Toe: Unstageable pressure ulcer, present on admission. 2. Right Lateral Malleolus: Unstageable pressure ulcer, present on admission. 3. SacralCoccygeal area: Stage II pressure ulcer, present on admission.
--- NOTE | 2021-07-10 15:10 | NUR ---
Dietitian Recommendations * Vital AF 1.2 at 30 ml/hr, increase by 10 ml Q8h to goal of 60 ml/hr, Quique BID, Free Water Flush: 50 ml Q6h via NGT Provides (w/ current KCl/D5%/NS IV): 2296 kcal/day, 122 gm protein/day, and 3768 ml free water/day Meets (w/ current KCl/D5%/NS IV): 99% of lower end of estimated caloric needs and 105% of upper end of estimated protein needs LP, RD Please refer to Nutrition F/U for details.
--- NOTE | 2021-07-10 19:30 | NUR ---
PM SHIFT ASSESSMENT Patient is awake but lethargic. SPO2 via hi flow, tolerating current settings. SR/ST on monitor. IVF infusing to EDI PICCLINE. Tubefeeding infusing to NG tube. Safety precautions in place, call light within reach. Will continue to monitor.
[2021-07-10] MEDS ORDERED: ACETAMINOPHEN 650 MG/20.3 ML UDC ONE (20:26)
[2021-07-11] VITALS (22 sets, daily range): BP systolic 109–164
[2021-07-11 06:47] LABS: BASOPHILS % (AUTO) 0.2 % (0.0-2.0); HEMATOCRIT 37.6 % (36-54); HEMOGLOBIN 12.3 g/dL (14.0-18.0); LYMPHOCYTES # (AUTO) 0.6 K/uL (1.0-5.5); LYMPHOCYTES % (AUTO) 3.5 % (20.5-51.5); MEAN CORPUSCULAR HEMOGLOBIN 28 pg (27-31); MEAN CORPUSCULAR HGB CONC 33 % (32-36); MEAN CORPUSCULAR VOLUME 86 fL (79.0-98.0); MONOCYTES # (AUTO) 0.4 K/uL (0.0-1.0); MONOCYTES % (AUTO) 2.6 % (1.7-9.3); NEUTROPHILS # (AUTO) 15.9 K/uL (1.8-7.7); NEUTROPHILS % (AUTO) 93.7 % (40.0-70.0); PLATELET COUNT (AUTO) 207 K/uL (130-430); RED BLOOD CELL COUNT(AUTO) 4.38 MIL/uL (4.2-6.2); RED CELL DISTRIBUTION WIDTH 15.2 % (9.0-15.0)
[2021-07-11 07:06] LABS: ALBUMIN 2.8 g/dL (3.4-4.8); CALCIUM 9.1 mg/dL (8.4-11.0); CREATININE 0.98 mg/dL (0.55-1.30); POTASSIUM 4.3 mmol/L (3.5-5.1); TOTAL BILIRUBIN 0.3 mg/dL (0.0-1.0)
--- NOTE | 2021-07-11 07:25 | NUR ---
ENDORSEMENT Patient care endorsed to loulou KLINE.
--- NOTE | 2021-07-11 07:45 | NUR ---
RT NOTES FIO2 to 0.80 per titration order. No adverse reactions noted. Will monitor pt. Rn notified, titration will be done cautiously due to desaturation in the past.
[2021-07-11] MEDS: KCL 20 mEq in D5/0.45NS 1000mL 1,000 ML IV SCH ×2 (10:33→15:15)
[2021-07-11] MEDS: ENOXAPARIN SODIUM 30 MG/0.3 ML SYRINGE SUBCUT SCH ×2 (10:35→21:20)
[2021-07-11] MEDS: DEXAMETHASONE SOD PHOSPHATE 10 MG/ML VIAL IVP SCH (10:36)
[2021-07-11] MEDS: PANTOPRAZOLE SODIUM 40 MG TAB PO SCH (10:37)
[2021-07-11] MEDS: LOSARTAN POTASSIUM 50 MG TABLET (COZAAR) PO SCH ×2 (10:38→21:19)
[2021-07-11] MEDS: CHOLECALCIFEROL (VITAMIN D3) 5,000 UNIT TABLET PO SCH (10:38)
[2021-07-11] MEDS: THEOPHYLLINE ANHYDROUS 200 MG CAP.ER.24H PO SCH ×2 (10:40→21:19)
[2021-07-11] MEDS: BALSAM PERU/CASTOR OIL 56.7 GM OINT...G. TP SCH (10:44)
--- NOTE | 2021-07-11 11:10 | NUR ---
Critical Lab Received call from lab that patient is positive for MRSA in the nares. Spoke with Dr. Weber in person and she already saw the result and has ordered antibiotics.
[2021-07-11] MEDS ORDERED: CEFEPIME 0.5 GM in D5W 50 ML IV ONE (12:00)
[2021-07-11] MEDS: LINEZOLID 300 ML IV SCH (12:44)
[2021-07-11] MEDS ORDERED: FLUCONAZOLE 400 mg/ NS 200 ML IV ONE (13:00)
[2021-07-11] MEDS: CEFEPIME 0.5 GM in D5W 50 ML IV SCH (21:18)
[2021-07-12] VITALS (23 sets, daily range): BP systolic 118–186
[2021-07-12] MEDS: LINEZOLID 300 ML IV SCH ×2 (01:04→11:43)
[2021-07-12] MEDS: hydrALAZINE HCL 20 MG/ML VIAL IVP PRN (05:43)
[2021-07-12 06:42] LABS: BASOPHILS % (AUTO) 0.2 % (0.0-2.0); HEMOGLOBIN 12.1 g/dL (14.0-18.0); LYMPHOCYTES # (AUTO) 0.6 K/uL (1.0-5.5); LYMPHOCYTES % (AUTO) 3.8 % (20.5-51.5); MEAN CORPUSCULAR HEMOGLOBIN 28 pg (27-31); MEAN CORPUSCULAR HGB CONC 33 % (32-36); MEAN CORPUSCULAR VOLUME 85 fL (79.0-98.0); MONOCYTES # (AUTO) 0.5 K/uL (0.0-1.0); MONOCYTES % (AUTO) 3.4 % (1.7-9.3); NEUTROPHILS # (AUTO) 14.6 K/uL (1.8-7.7); NEUTROPHILS % (AUTO) 92.6 % (40.0-70.0); PLATELET COUNT (AUTO) 205 K/uL (130-430); RED BLOOD CELL COUNT(AUTO) 4.35 MIL/uL (4.2-6.2); RED CELL DISTRIBUTION WIDTH 14.7 % (9.0-15.0); WHITE BLOOD COUNT (AUTO) 15.8 K/uL (4.8-10.8)
--- NOTE | 2021-07-12 07:00 | NUR ---
Leanne San RN is caring for this patient today
[2021-07-12 07:01] LABS: ALBUMIN 2.9 g/dL (3.4-4.8); CALCIUM 8.9 mg/dL (8.4-11.0); CREATININE 0.69 mg/dL (0.55-1.30); POTASSIUM 4.5 mmol/L (3.5-5.1); TOTAL BILIRUBIN 0.7 mg/dL (0.0-1.0)
--- NOTE | 2021-07-12 08:00 | NUR ---
Leanne San, RN: Received this patient from off going [facility] RN. This is a 70 year old male with his tory of HTN, Parkinson's disease. Was on home hospice, on DNR. Patient presented to ED with c/o SOB diagnosed with Left Lower Lobe PNA and COVID. Patient is contracted and stiff. Presently, patient is DNI. Remains lethargic. On SR, High Flow Oxygen @ 40L and 40% Fio2. Does not exhibit any sign or symptom of pain. Vital AF via NGT. On Condom cath. Has Stage two sacral decub. Atropine at the bedside for HR < 45. Allergic to Sulfur. 1000: Patient was given a partial bath with all the linens and gown changed. Temp 100.7. Given Tylenol 650mgs liquid. Will continue to monitor this patient. 1100: Cleansed wound on the sacrum with NS patted dry, applied Venelex and covered with Mepilex. Cleansed the wound left ankle, pated dry, applied Venelex and covered with Mepilex. Will continue to monitor this patient.
--- NOTE | 2021-07-12 09:30 | NUR ---
DECREASED FIO2 ON HIGH FLOW TO 40%. RN AWARE. NO SOB OR DISTRESS NOTED. WILL CONTINUE TO MONITOR PATIENT.
[2021-07-12] MEDS: DEXAMETHASONE SOD PHOSPHATE 10 MG/ML VIAL IVP SCH (09:43)
[2021-07-12] MEDS: PANTOPRAZOLE SODIUM 40 MG TAB PO SCH (09:43)
[2021-07-12] MEDS: LOSARTAN POTASSIUM 50 MG TABLET (COZAAR) PO SCH ×2 (09:44→21:23)
[2021-07-12] MEDS: THEOPHYLLINE ANHYDROUS 200 MG CAP.ER.24H PO SCH ×2 (09:51→21:23)
[2021-07-12] MEDS: ENOXAPARIN SODIUM 30 MG/0.3 ML SYRINGE SUBCUT SCH ×2 (09:54→21:24)
[2021-07-12] MEDS: CHOLECALCIFEROL (VITAMIN D3) 5,000 UNIT TABLET PO SCH (09:54)
[2021-07-12] MEDS: BALSAM PERU/CASTOR OIL 56.7 GM OINT...G. TP SCH (09:57)
[2021-07-12] MEDS: CEFEPIME 0.5 GM in D5W 50 ML IV SCH ×2 (09:58→21:22)
[2021-07-12] MEDS: ACETAMINOPHEN 650 MG/20.3 ML UDC NG PRN (11:43)
[2021-07-12] MEDS: FLUCONAZOLE 200 mg/ NS 100 ML IV SCH (11:44)
--- NOTE | 2021-07-12 13:50 | NUR ---
DECREASED FIO2 ON HIGH FLOW TO 30% AND FLOW TO 30 L. RN AWARE. MD REYES AT BEDSIDE. NO SOB OR DISTRESS NOTED. WILL CONTINUE TO MONITOR PATIENT.
--- NOTE | 2021-07-12 19:30 | NUR ---
Asher Rodriguez RN, received bedside report from day RN, assuming care now.
--- NOTE | 2021-07-12 19:46 | NUR ---
Leanne San RN Status remains stable this shift end as compared to early part of shift. Temp down to 97.6 from 100.7. High Flow oxygen at 30% Fio2. On 30L of Oxygen. Saturating 95% to 100%. Report given to the [employer] Person RN that will continue with the care of this patient. All stated protocols remain effective.
[2021-07-13] VITALS (24 sets, daily range): BP systolic 119–172
[2021-07-13] MEDS: LINEZOLID 300 ML IV SCH ×3 (00:56→23:56)
--- NOTE | 2021-07-13 05:42 | NUR ---
Patient continues to tolerate 30L HFNC. No signs of respiratory distress.
[2021-07-13] MEDS: KCL 20 mEq in D5/0.45NS 1000mL 1,000 ML IV SCH ×4 (07:00→19:52)
[2021-07-13 07:10] LABS: BASOPHILS % (AUTO) 0.2 % (0.0-2.0); HEMATOCRIT 36.6 % (36-54); HEMOGLOBIN 12.1 g/dL (14.0-18.0); LYMPHOCYTES # (AUTO) 0.5 K/uL (1.0-5.5); LYMPHOCYTES % (AUTO) 4.2 % (20.5-51.5); MEAN CORPUSCULAR HEMOGLOBIN 28 pg (27-31); MEAN CORPUSCULAR HGB CONC 33 % (32-36); MEAN CORPUSCULAR VOLUME 85 fL (79.0-98.0); MONOCYTES # (AUTO) 0.7 K/uL (0.0-1.0); MONOCYTES % (AUTO) 6.3 % (1.7-9.3); NEUTROPHILS # (AUTO) 10.2 K/uL (1.8-7.7); NEUTROPHILS % (AUTO) 89.3 % (40.0-70.0); PLATELET COUNT (AUTO) 202 K/uL (130-430); RED CELL DISTRIBUTION WIDTH 14.7 % (9.0-15.0); WHITE BLOOD COUNT (AUTO) 11.4 K/uL (4.8-10.8)
[2021-07-13 07:20] LABS: ALBUMIN 2.8 g/dL (3.4-4.8); CALCIUM 8.4 mg/dL (8.4-11.0); CREATININE 0.8 mg/dL (0.55-1.30); POTASSIUM 3.9 mmol/L (3.5-5.1); TOTAL BILIRUBIN 0.7 mg/dL (0.0-1.0)
[2021-07-13] MEDS: PANTOPRAZOLE SODIUM 40 MG TAB PO SCH (08:41)
[2021-07-13] MEDS: CHOLECALCIFEROL (VITAMIN D3) 5,000 UNIT TABLET PO SCH (08:41)
[2021-07-13] MEDS: DEXAMETHASONE SOD PHOSPHATE 10 MG/ML VIAL IVP SCH (08:42)
[2021-07-13] MEDS: LOSARTAN POTASSIUM 50 MG TABLET (COZAAR) PO SCH ×2 (08:42→20:18)
[2021-07-13] MEDS: ENOXAPARIN SODIUM 30 MG/0.3 ML SYRINGE SUBCUT SCH ×2 (08:45→20:20)
[2021-07-13] MEDS: THEOPHYLLINE ANHYDROUS 200 MG CAP.ER.24H PO SCH ×2 (08:50→20:21)
[2021-07-13] MEDS: BALSAM PERU/CASTOR OIL 56.7 GM OINT...G. TP SCH (09:32)
[2021-07-13] MEDS: CEFEPIME 0.5 GM in D5W 50 ML IV SCH ×2 (09:59→20:18)
[2021-07-13] MEDS: FLUCONAZOLE 200 mg/ NS 100 ML IV SCH (13:05)
--- NOTE | 2021-07-13 14:40 | NUR ---
Nutrition F/U Admitting Diagnosis Acute COVID, pulmonary nodular amyloidosis Reviewed Pertinent Medical/Surgical Hx Medical Record Primary RN Medical History Comment: PMH: CVA, dementia, MS and Parkinson's Dz, HTN, multiple strokes per physician notes Pt also found w/ severe COVID-19 pneumonia (improving), hypoxia and transient bradycardia per physician notes SARS-CoV-2 Ag (Rapid) Positive 07/01 & 07/08 Subjective Information: DI bedside visit deferred d/t COVID airborne isolation precautions. Per EMR review, pt on 30 L high flow NC, titrating down per ICU rounds. David score 13, dry scab noted on L and R toes, erythema posterior coccyx, all wounds healing per ICU rounds. Abdomen is soft, non-distended w/ active BS. Quique is being documented per EMR. Per ICU rounds, RN will continue to give Quique. Plan for PEG placement after negative covid test. Current Diet Order/Nutrition Support: Vital AF 1.2 @60 mL/hr (goal rate), Free Water Flush: 50 ml Q6h, Quique BID via NGT x3 days Patient/Significant Other Unable To Verbalize Education Provided Not Indicated Pertinent Medications lovenox, decadron, zinc, VIT D3, KCl/D5%/NS at 100 ml/hr (408 kcal/day), protonix Pertinent Labs Na 135 L, BUN 30 H, BG 110 H, Alb 2.8 L, WBC 11.4 H Height (Feet) 6 feet Height (Inches) 0.00 inches Weight (Pounds) 170 pounds no changes since 07/03 Weight (Calculated Kilograms) 77.772963 kilograms Patient Weight 77.111 kg Body Mass Index 23.05 kg/m2 %IBW 96 [place]/Adjusted Body Weight 178#/80.9 kg Recent Weight Change Unable to verify Weight Status Appropriate Food Allergies Unable to verify (*ongoing) Estimated Energy Expenditure (kcals/day) 4232-2511 (30-35 kcal/kg CBW d/t acute critical illness) (*ongoing) Estimated Protein Required (g/day) 93-116 (1.2-1.5 gm/kg CBW d/t acute critical illness) (*ongoing) Estimated Fluid Required (l/day) 2.3-2.7 (1 ml/kcal/day for GERIAT maintenance) Problem/Etiology/Signs/Symptoms Increased nutritional needs R/T metabolic demands AEB estimated nutritional requirements for acute critical illness. (*Ongoing) Risk for aspiration R/T weakness/compromised respiratory status AEB RN report, use of NRBM, and current pureed diet order. (*No longer applicable) Expected Outcomes/Goals - Monitor TF tolerance and intakes w/ goal of pt meeting at least 90% of estimated nutritional needs, labs trending WNL, normal GI function, and skin integrity/wt maintenance Dietitian Recommendations * Continue Vital AF 1.2 at 60 ml/hr, Quique BID, Free Water Flush: 50 ml Q6h via NGT Provides (w/ current KCl/D5%/NS IV): 2296 kcal/day, 122 gm protein/day, and 3768 ml free water/day Meets (w/ current KCl/D5%/NS IV): 99% of lower end of estimated caloric needs and 105% of upper end of estimated protein needs Follow Up Moderate Risk: F/U in 3-5 days Signed: 07/13/21 at 1440 by Hortencia DUNCAN <Co-Signature Required> Co-Signed: 07/13/21 at [address]
--- NOTE | 2021-07-13 14:41 | NUR ---
Dietitian Recommendations * Continue Vital AF 1.2 at 60 ml/hr, Quique BID, Free Water Flush: 50 ml Q6h via NGT Provides (w/ current KCl/D5%/NS IV): 2296 kcal/day, 122 gm protein/day, and 3768 ml free water/day Meets (w/ current KCl/D5%/NS IV): 99% of lower end of estimated caloric needs and 105% of upper end of estimated protein needs Please refer to nutrition f/u for details. Signed: 07/13/21 at 1441 by Hortencia DUNCAN <Co-Signature Required> Co-Signed: 07/13/21 at [address]
--- NOTE | 2021-07-13 19:10 | NUR ---
Opening notes Received report from endorsing morning shift RN Vera for continuity of care. Patient is lying in bed in no signs of distress with IVF KCl in D5NS @100mL/hr. Patient's vital signs blood pressure 159/96, heart rate 74, respirations 21, and SPO2 100% on HFNC 30% 30L. Patient has a condom catheter in place draining to gravity, yellow in color. Tubefeeding vital AF 1.2 is running at 60 mL/hr. Bed is locked and in lowest position, fall and safety precautions is in place.
[2021-07-14] VITALS (23 sets, daily range): BP systolic 136–170
[2021-07-14] MEDS: hydrALAZINE HCL 20 MG/ML VIAL IVP PRN ×2 (02:39→14:13)
[2021-07-14] MEDS: KCL 20 mEq in D5/0.45NS 1000mL 1,000 ML IV SCH ×2 (06:28→14:14)
[2021-07-14 06:57] LABS: BASOPHILS % (AUTO) 0.2 % (0.0-2.0); HEMATOCRIT 38.9 % (36-54); HEMOGLOBIN 12.9 g/dL (14.0-18.0); LYMPHOCYTES # (AUTO) 0.4 K/uL (1.0-5.5); LYMPHOCYTES % (AUTO) 5.4 % (20.5-51.5); MEAN CORPUSCULAR HEMOGLOBIN 28 pg (27-31); MEAN CORPUSCULAR HGB CONC 33 % (32-36); MEAN CORPUSCULAR VOLUME 85 fL (79.0-98.0); MONOCYTES # (AUTO) 0.7 K/uL (0.0-1.0); MONOCYTES % (AUTO) 8.6 % (1.7-9.3); NEUTROPHILS % (AUTO) 85.8 % (40.0-70.0); PLATELET COUNT (AUTO) 196 K/uL (130-430); RED BLOOD CELL COUNT(AUTO) 4.56 MIL/uL (4.2-6.2); RED CELL DISTRIBUTION WIDTH 14.8 % (9.0-15.0); WHITE BLOOD COUNT (AUTO) 8.1 K/uL (4.8-10.8)
[2021-07-14 07:14] LABS: ALBUMIN 2.9 g/dL (3.4-4.8); CALCIUM 9.3 mg/dL (8.4-11.0); CREATININE 0.6 mg/dL (0.55-1.30); POTASSIUM 4.2 mmol/L (3.5-5.1); TOTAL BILIRUBIN 0.3 mg/dL (0.0-1.0)
--- NOTE | 2021-07-14 07:26 | NUR ---
Initial Bedside shift report received from night RN for continuation of care
[2021-07-14] MEDS: CHOLECALCIFEROL (VITAMIN D3) 5,000 UNIT TABLET PO SCH (09:29)
[2021-07-14] MEDS: PANTOPRAZOLE SODIUM 40 MG TAB PO SCH (09:29)
[2021-07-14] MEDS: LOSARTAN POTASSIUM 50 MG TABLET (COZAAR) PO SCH ×2 (09:30→20:51)
[2021-07-14] MEDS: DEXAMETHASONE SOD PHOSPHATE 10 MG/ML VIAL IVP SCH (09:30)
[2021-07-14] MEDS: THEOPHYLLINE ANHYDROUS 200 MG CAP.ER.24H PO SCH ×2 (09:53→20:50)
[2021-07-14] MEDS: CEFEPIME 0.5 GM in D5W 50 ML IV SCH ×2 (09:53→20:52)
[2021-07-14] MEDS: ENOXAPARIN SODIUM 30 MG/0.3 ML SYRINGE SUBCUT SCH ×2 (09:54→20:53)
[2021-07-14] MEDS: LINEZOLID 300 ML IV SCH (13:00)
[2021-07-14] MEDS: BALSAM PERU/CASTOR OIL 56.7 GM OINT...G. TP SCH (13:01)
[2021-07-14] MEDS: FLUCONAZOLE 200 mg/ NS 100 ML IV SCH (13:02)
--- NOTE | 2021-07-14 14:52 | NUR ---
Update Pt's HR is 120 (120-125) for abt 10 mins. Notified MD Moon. Received Hydralazine 25mg via NGT, once time order. Also informed MD of pt's Na of 131 (no order of low Na received). Implement interventions as ordered
[2021-07-14] MEDS ORDERED: hydrALAZINE HCL 25 MG TABLET PO ONE (15:00)
[2021-07-14] MEDS ORDERED: DIPHENHYDRAMINE INJ 50 MG/ML VIAL IVP ONE (18:45)
[2021-07-14] MEDS ORDERED: DIPHENHYDRAMINE INJ 50 MG/ML VIAL IVP PRN (18:45)
--- NOTE | 2021-07-14 19:20 | NUR ---
Endorsement End of shift report given to night RN for continuation of care
--- NOTE | 2021-07-14 19:20 | NUR ---
Opening notes Received report from endorsing morning shift RN for continuity of care. Patient is lying in bed diaphoretic but no fever. Patient have an IVF running KCl with 20mEq in D5NS @ 100mL/hr on his right upper PICC line and tubefeeding vital AF 1.2 @ 60 mL/hr. Patient's vital signs blood pressure 136/76, heart rate 112, respirations 21, and SPO2 100% on oxymizer @3L. Bed is locked and in lowest position, hob 30 degrees, fall and safety precautions is in place.
[2021-07-15] VITALS (24 sets, daily range): BP systolic 16–172
[2021-07-15] MEDS: KCL 20 mEq in D5/0.45NS 1000mL 1,000 ML IV SCH ×3 (00:04→23:14)
[2021-07-15] MEDS: LINEZOLID 300 ML IV SCH ×3 (00:04→23:15)
[2021-07-15 06:36] LABS: BASOPHILS % (AUTO) 0.2 % (0.0-2.0); CALCIUM 8.7 mg/dL (8.4-11.0); CREATININE 0.65 mg/dL (0.55-1.30); HEMATOCRIT 37.9 % (36-54); HEMOGLOBIN 12.7 g/dL (14.0-18.0); LYMPHOCYTES # (AUTO) 0.6 K/uL (1.0-5.5); LYMPHOCYTES % (AUTO) 7.6 % (20.5-51.5); MEAN CORPUSCULAR HEMOGLOBIN 29 pg (27-31); MEAN CORPUSCULAR HGB CONC 34 % (32-36); MEAN CORPUSCULAR VOLUME 85 fL (79.0-98.0); MONOCYTES # (AUTO) 0.9 K/uL (0.0-1.0); MONOCYTES % (AUTO) 10.4 % (1.7-9.3); NEUTROPHILS # (AUTO) 6.9 K/uL (1.8-7.7); NEUTROPHILS % (AUTO) 81.8 % (40.0-70.0); PLATELET COUNT (AUTO) 192 K/uL (130-430); POTASSIUM 4.6 mmol/L (3.5-5.1); RED BLOOD CELL COUNT(AUTO) 4.43 MIL/uL (4.2-6.2); RED CELL DISTRIBUTION WIDTH 15.1 % (9.0-15.0); WHITE BLOOD COUNT (AUTO) 8.5 K/uL (4.8-10.8)
--- NOTE | 2021-07-15 07:30 | NUR ---
RECEIVED PT FROM NOC SHIFT RN. PT IS AAOX1 TO SELF, NONVERBAL, CAN NOT COMMUNICATE NEEDS OR FOLLOW COMMANDS. PUPILS 3MM BRISK BILATERALLY. PT NOTED WITH SINUS TACH HR IN 110, PT HAS HISTORY OF ARTIFACT DUE TO TREMORS. PT ON 02 OXYMIZER AT 3LPM. RESP EVEN, SHALLOW, LUNG SOUNDS DIMINISHED BILATERAL BASES. ABDOMEN SOFT, NONTENDER, NONDISTENDED. BOWEL SOUNDS ACTIVE. NOC SHIFT RN REPORTS LOOSE STOOLS X2. NGT TO R NARE WITH TF VITAL AF RUNNING A 6O ML/HOUR. ASPIRATION PRECAUTIONS IN PLACE. RUE PICC LINE 2 LUMENS WITH KCL 20 MEQ IN D5 NS RUNNING AT 100ML/HOUR. PT HAS CONDOM CATH IN PLACE DRAINING CLEAR YELLOW URINE TO GRAVITY, STAT LOCK IN PLACE TO L THIGH. NO S/S OF PAIN. BED IN LOWEST POSITION.
--- NOTE | 2021-07-15 07:47 | NUR ---
DR. MONTES DE OCA MET WITH AND ASSESSED PT. REPORTED THAT PT'S HR TRENDS UP TO 180S, BUT IT APPEARS IT IS BASELINE FOR PT SINCE HE HAS TREMORS. DR. MONTES DE OCA AGREED AND ORDERED 12 LEAD FOR RULE OUT SVT.
[2021-07-15] MEDS: BALSAM PERU/CASTOR OIL 56.7 GM OINT...G. TP SCH (09:00)
[2021-07-15] MEDS: CHOLECALCIFEROL (VITAMIN D3) 5,000 UNIT TABLET PO SCH (10:16)
[2021-07-15] MEDS: DEXAMETHASONE SOD PHOSPHATE 10 MG/ML VIAL IVP SCH (10:16)
[2021-07-15] MEDS: PANTOPRAZOLE SODIUM 40 MG TAB PO SCH (10:17)
[2021-07-15] MEDS: LOSARTAN POTASSIUM 50 MG TABLET (COZAAR) PO SCH ×2 (10:17→22:35)
[2021-07-15] MEDS: CEFEPIME 0.5 GM in D5W 50 ML IV SCH ×2 (10:21→23:13)
[2021-07-15] MEDS: ENOXAPARIN SODIUM 30 MG/0.3 ML SYRINGE SUBCUT SCH ×2 (10:22→23:16)
[2021-07-15] MEDS: THEOPHYLLINE ANHYDROUS 200 MG CAP.ER.24H PO SCH ×2 (10:24→23:12)
[2021-07-15] MEDS: FLUCONAZOLE 200 mg/ NS 100 ML IV SCH (13:01)
--- NOTE | 2021-07-15 14:04 | NUR ---
REPORTED TO DR. HURTADO, PT HAS LOOSE STOOLS TODAY AND REPORTED LOOSE STOOLS ON NOC SHIFT PRIOR SHIFT. RECEIVED ORDER FOR CDIFF LAB. STOOL OBTAINED AND TAKEN TO LAB AT THIS TIME.
[2021-07-15] MEDS: ACETAMINOPHEN 650 MG/20.3 ML UDC NG PRN (15:49)
[2021-07-15] MEDS: hydrALAZINE HCL 20 MG/ML VIAL IVP PRN (15:50)
--- NOTE | 2021-07-15 16:30 | NUR ---
PT'S SBP 172, HYDRALAZINE IVP PRN GIVEN ORDERED. PT TENSE WITH MOANING, TYLENOL 650MG NGT PRN GIVEN ORDERED FOR FLACC OF 3. PT HAD LOOSE BM. PT CLEANED AND GIVEN PARTIAL BED BATH, PERINEAL CARE, WOUND CARE AND LINEN CHANGE. PT TOLERATED ACTIVITY WELL. NO S/S OF DISTRESS NOTED. ASPIRATION PRECAUTIONS MAINTAINED.
--- NOTE | 2021-07-15 19:30 | NUR ---
Pt report received. Pt resting quietly, easily awakened, non-verbal. O2 at 2 LPM/NC, NGT to right nare with Vital A/F at 60 mL/hr, EDI PICC with D5 1/2NS with 20 mEq KCl at 100 mL/hr, condom cath in place draining clear yellow urine. VSS, NAD.
--- NOTE | 2021-07-15 19:33 | NUR ---
ENDORSED ALL CARE TO SARAH KLINE.
[2021-07-16] VITALS (24 sets, daily range): BP systolic 135–189
--- NOTE | 2021-07-16 02:00 | NUR ---
Pt had large brown BM. Pt cleaned, fresh gown and linens applied. Tolerated well. VSS, NAD.
--- NOTE | 2021-07-16 06:00 | NUR ---
Pt had moderate brown loose BM. Pt cleaned, fresh gown and linens applied. Tolerated well.
[2021-07-16 06:53] LABS: BASOPHILS % (AUTO) 0.2 % (0.0-2.0); EOSINOPHILS % (AUTO) 0.5 % (0.0-4.0); HEMATOCRIT 37.4 % (36-54); HEMOGLOBIN 12.4 g/dL (14.0-18.0); LYMPHOCYTES # (AUTO) 0.8 K/uL (1.0-5.5); LYMPHOCYTES % (AUTO) 13.7 % (20.5-51.5); MEAN CORPUSCULAR HEMOGLOBIN 28 pg (27-31); MEAN CORPUSCULAR HGB CONC 33 % (32-36); MEAN CORPUSCULAR VOLUME 86 fL (79.0-98.0); MONOCYTES # (AUTO) 0.7 K/uL (0.0-1.0); MONOCYTES % (AUTO) 11.2 % (1.7-9.3); NEUTROPHILS # (AUTO) 4.4 K/uL (1.8-7.7); NEUTROPHILS % (AUTO) 74.4 % (40.0-70.0); PLATELET COUNT (AUTO) 173 K/uL (130-430); RED BLOOD CELL COUNT(AUTO) 4.35 MIL/uL (4.2-6.2); RED CELL DISTRIBUTION WIDTH 14.8 % (9.0-15.0); WHITE BLOOD COUNT (AUTO) 5.9 K/uL (4.8-10.8)
--- NOTE | 2021-07-16 07:00 | NUR ---
Pt report given to RAISA Mc.
--- NOTE | 2021-07-16 07:30 | NUR ---
RECEIVED PT FROM RAISA SMITH. PT IS AAOX1 TO SELF, APHASIC, DOSE NOT FOLLOW COMMANDS. PUPILS 3MM BRISK BILATERALLY. TELE IN PLACE READING NSR. RESP E/U, SHALLOW, CLEAR BILATERALLY. N/C AT 2LPM IN PLACE. NO SOB OR COUGH NOTED. ABDOMEN SOFT, NONTENDER, NONDISTENDED. BOWEL SOUNDS ACTIVE X4. PT HAS LOOSE STOOLS. CDIFF PENDING. R NARE NGT IN PLACE WITH VITAL AF 1.2 RUNNING AT 60ML/HOUR. ASPIRATION PRECAUTIONS IN PLACE. DISTAL PULSES NORMAL, SKIN WARM, NO EDEMA. EDI PICC LINE [address] WITH D5 NS RUNNING AT 100ML/HOUR. SITE WNL, DRESSING CDI. NO S/S OF PAIN OR DISTRESS NOTED. DROPLET AND CONTACT PRECAUTIONS IN PLACED. BED IN LOWEST POSITION.
[2021-07-16 08:14] LABS: ALBUMIN 2.8 g/dL (3.4-4.8); CALCIUM 8.8 mg/dL (8.4-11.0); CREATININE 0.51 mg/dL (0.55-1.30); POTASSIUM 3.8 mmol/L (3.5-5.1); TOTAL BILIRUBIN 0.3 mg/dL (0.0-1.0)
--- NOTE | 2021-07-16 08:30 | NUR ---
DR. MONTES DE OCA BY TO SEE PT, MADE HIM AWARE PT WAS HAD 2 EPISODES FIRST DEGREE BLOCK DURING NOC SHIFT, BUT IT HAS RESOVED. NNOS.
--- NOTE | 2021-07-16 10:00 | NUR ---
SCHEDULED MEDS GIVEN AND TOLERATED WELL. LOLITA GIVEN. TUBE FEED REPLENISHED. NO S/S OF PAIN OR DISTRESS NOTED. PT'S O2 SAT AT 100%, N/C REMOVED.
[2021-07-16] MEDS: PANTOPRAZOLE SODIUM 40 MG TAB PO SCH (10:06)
[2021-07-16] MEDS: LOSARTAN POTASSIUM 50 MG TABLET (COZAAR) PO SCH ×2 (10:07→22:54)
[2021-07-16] MEDS: CHOLECALCIFEROL (VITAMIN D3) 5,000 UNIT TABLET PO SCH (10:07)
[2021-07-16] MEDS: CEFEPIME 0.5 GM in D5W 50 ML IV SCH ×2 (10:09→22:51)
[2021-07-16] MEDS: THEOPHYLLINE ANHYDROUS 200 MG CAP.ER.24H PO SCH ×2 (10:09→22:55)
[2021-07-16] MEDS: BALSAM PERU/CASTOR OIL 56.7 GM OINT...G. TP SCH (10:10)
[2021-07-16] MEDS: DEXAMETHASONE SOD PHOSPHATE 10 MG/ML VIAL IVP SCH (10:10)
[2021-07-16] MEDS: ENOXAPARIN SODIUM 30 MG/0.3 ML SYRINGE SUBCUT SCH ×2 (10:13→22:57)
[2021-07-16] MEDS: KCL 20 mEq in D5/0.45NS 1000mL 1,000 ML IV SCH ×2 (11:22→22:52)
[2021-07-16] MEDS: LINEZOLID 300 ML IV SCH (12:59)
--- NOTE | 2021-07-16 13:20 | NUR ---
Nutrition Notes RD rounded to ICU this afternoon and primary RN reported that pt has been having loose stool for the past 24 hours and suggested that banana flakes may be a good option. RD agreed. New order for Banatrol BID placed under TF order via TO/RB per MD. Pt will be seen for Nutrition F/U this weekend.
[2021-07-16] MEDS: FLUCONAZOLE 200 mg/ NS 100 ML IV SCH (13:51)
--- NOTE | 2021-07-16 14:45 | NUR ---
I spoke to the patient's [phone]-she requested the patient be transferred to a SNF in the [facility] when he is medically stable.
--- NOTE | 2021-07-16 17:40 | NUR ---
SBP 109S HYDRALAZINE 10MG IVP GIVEN .
[2021-07-16] MEDS: hydrALAZINE HCL 20 MG/ML VIAL IVP PRN (17:48)
--- NOTE | 2021-07-16 19:50 | NUR ---
ENDORSED ALL CARE TO RAISA HEARD. ALL QUESTIONS AND CONCERNS ADDRESSED.
[2021-07-16] MEDS: CARVEDILOL 12.5 MG TABLET (COREG) NG SCH (22:53)
[2021-07-17] VITALS (24 sets, daily range): BP systolic 92–177
[2021-07-17] MEDS: LINEZOLID 300 ML IV SCH
[2021-07-17 06:40] LABS: BASOPHILS % (AUTO) 0.1 % (0.0-2.0); HEMATOCRIT 41.4 % (36-54); HEMOGLOBIN 13.5 g/dL (14.0-18.0); LYMPHOCYTES # (AUTO) 0.5 K/uL (1.0-5.5); LYMPHOCYTES % (AUTO) 6.6 % (20.5-51.5); MEAN CORPUSCULAR HEMOGLOBIN 28 pg (27-31); MEAN CORPUSCULAR HGB CONC 33 % (32-36); MEAN CORPUSCULAR VOLUME 87 fL (79.0-98.0); MONOCYTES # (AUTO) 0.7 K/uL (0.0-1.0); MONOCYTES % (AUTO) 8.1 % (1.7-9.3); NEUTROPHILS # (AUTO) 7.1 K/uL (1.8-7.7); NEUTROPHILS % (AUTO) 85.2 % (40.0-70.0); PLATELET COUNT (AUTO) 155 K/uL (130-430); RED BLOOD CELL COUNT(AUTO) 4.76 MIL/uL (4.2-6.2); RED CELL DISTRIBUTION WIDTH 15.3 % (9.0-15.0); WHITE BLOOD COUNT (AUTO) 8.3 K/uL (4.8-10.8)
[2021-07-17] MEDS: KCL 20 mEq in D5/0.45NS 1000mL 1,000 ML IV SCH ×3 (06:47→22:52)
[2021-07-17 07:54] LABS: CALCIUM 9.1 mg/dL (8.4-11.0); CREATININE 0.65 mg/dL (0.55-1.30); POTASSIUM 4.1 mmol/L (3.5-5.1)
[2021-07-17] MEDS: DEXAMETHASONE SOD PHOSPHATE 10 MG/ML VIAL IVP SCH (08:26)
[2021-07-17] MEDS: CHOLECALCIFEROL (VITAMIN D3) 5,000 UNIT TABLET PO SCH (08:27)
[2021-07-17] MEDS: CARVEDILOL 12.5 MG TABLET (COREG) NG SCH ×2 (08:27→21:38)
[2021-07-17] MEDS: PANTOPRAZOLE SODIUM 40 MG TAB PO SCH (08:27)
[2021-07-17] MEDS: LOSARTAN POTASSIUM 50 MG TABLET (COZAAR) PO SCH ×2 (08:28→21:38)
[2021-07-17] MEDS: THEOPHYLLINE ANHYDROUS 200 MG CAP.ER.24H PO SCH ×2 (08:28→21:40)
[2021-07-17] MEDS: ENOXAPARIN SODIUM 30 MG/0.3 ML SYRINGE SUBCUT SCH ×2 (08:30→21:39)
[2021-07-17] MEDS: BALSAM PERU/CASTOR OIL 56.7 GM OINT...G. TP SCH (08:30)
[2021-07-17] MEDS: CEFEPIME 0.5 GM in D5W 50 ML IV SCH ×2 (08:32→21:37)
--- NOTE | 2021-07-17 10:00 | NUR ---
Spoke to in detail regarding pt's current condition and plan of care.
--- NOTE | 2021-07-17 11:00 | NUR ---
COVID 19 SWAB REPEAT DONE AT THE BEDSIDE. AND SENT TO THE LAB PER PROTOCOL PER DR ANDINO.
--- NOTE | 2021-07-17 14:41 | NUR ---
Nutrition F/U Admitting Diagnosis Acute COVID, pulmonary nodular amyloidosis Reviewed Pertinent Medical/Surgical Hx Medical Record Primary RN Medical History Comment: PMH: CVA, dementia, MS and Parkinson's Dz, HTN, multiple strokes per physician notes Pt also found w/ severe COVID-19 pneumonia (improving), hypoxia and transient bradycardia per physician notes SARS-CoV-2 Ag (Rapid) Positive 07/01 & 07/08 Subjective Information: RD bedside visit deferred d/t COVID airborne isolation precautions. RD rounded to ICU and spoke w/ pt's primary RN. She reported that pt has been tolerating TF at goal rate, no longer experiencing diarrhea. She also reported that new COVID swab was taken today. Per ICU rounds 07/16, plan for PEG placement after negative COVID test. Per EMR review, pt is aphasic, now on RA; TF Rate: 60 ml/hr 07/17; GRV: 5 ml 07/17; NGT to R nares; LBM x2 07/16; pt tested negative for C. diff 07/15; abd is soft and non-distended w/ active bowel sounds; David scale: 11 -- per [place] [employer] note 07/05: 1. Right Great Toe: Unstageable pressure ulcer, present on admission. 2. Right Lateral Malleolus: Unstageable pressure ulcer, present on admission. 3. SacralCoccygeal area: Stage II pressure ulcer, present on admission. Banatrol no longer appropriate, however, current TF prescription along w/ Quique BID is adequate/appropriate to meet nutritional needs. Current Diet Order/Nutrition Support: Vital AF 1.2 at 60 mL/hr (goal rate), Quique BID, Banatrol BID, Free Water Flush: 50 ml Q6h via NGT x1 day Patient/Significant Other Unable To Verbalize Education Provided Not Indicated Pertinent Medications: decadron, protonix, lovenox, zinc sulfate, VIT D3 Pertinent Labs: Na 132 L, BUN 44 H, BG 127 H, ALB 2.8 L, WBC 8.3 WNL Height (Feet) 6 feet Height (Inches) 0.00 inches Weight (Pounds) 170 pounds no changes since 07/03 Weight (Calculated Kilograms) 77.821291 kilograms Patient Weight 77.111 kg Body Mass Index 23.05 kg/m2 %IBW 96 [place]/Adjusted Body Weight 178#/80.9 kg Recent Weight Change Unable to verify Weight Status Appropriate Food Allergies Unable to verify (*ONGOING) Estimated Energy Expenditure (kcals/day) 5235-6518 (30-35 kcal/kg CBW d/t acute critical illness) (*ONGOING) Estimated Protein Required (g/day) 93-116 (1.2-1.5 gm/kg CBW d/t acute critical illness) (*ONGOING) Estimated Fluid Required (l/day) 2.3-2.7 (1 ml/kcal/day for GERIAT maintenance) Problem/Etiology/Signs/Symptoms Increased nutritional needs R/T metabolic demands AEB estimated nutritional requirements for acute critical illness. (*ONGOING) Risk for aspiration R/T weakness/compromised respiratory status AEB RN report, use of NRBM, and current pureed diet order. (*No longer applicable) Expected Outcomes/Goals - Monitor TF tolerance and intakes w/ goal of pt meeting at least 90% of estimated nutritional needs, labs trending WNL, normal GI function, and skin integrity/wt maintenance Dietitian Recommendations * Vital AF 1.2 at 60 ml/hr, Quique BID, Free Water Flush: 50 ml Q6h via NGT Provides (w/ current KCl/D5%/NS IV): 2296 kcal/day, 113 gm protein/day, and 3768 ml free water/day Meets (w/ current KCl/D5%/NS IV): 99% of lower end of estimated caloric needs and 97% of upper end of estimated protein needs * D/C Banatrol BID Follow Up Moderate Risk: F/U in 3-5 days
--- NOTE | 2021-07-17 14:52 | NUR ---
Dietitian Recommendations * Vital AF 1.2 at 60 ml/hr, Quique BID, Free Water Flush: 50 ml Q6h via NGT Provides (w/ current KCl/D5%/NS IV): 2296 kcal/day, 113 gm protein/day, and 3768 ml free water/day Meets (w/ current KCl/D5%/NS IV): 99% of lower end of estimated caloric needs and 97% of upper end of estimated protein needs * D/C Banatrol BID LP, RD Please refer to Nutrition F/U for details.
[2021-07-17] MEDS: hydrALAZINE HCL 20 MG/ML VIAL IVP PRN (17:48)
--- NOTE | 2021-07-17 18:59 | NUR ---
Suctioned pt via nasally and orally with moderate amount of thick secretions. pt has 2 L n/c with sats 95%, HOB at 30'.
--- NOTE | 2021-07-17 19:03 | NUR ---
Hydralazine prn given per md order for sbp> 160, see mar.
--- NOTE | 2021-07-17 23:00 | NUR ---
HAD DESATS DOWN TO 74 SUCTIONED AND REPOSITIONED HIM BUT NO AVAIL O2 CHANGED TO VENTURI MASK AT 60% 15L
[2021-07-18] VITALS (24 sets, daily range): BP systolic 118–188
--- NOTE | 2021-07-18 01:30 | NUR ---
AGAIN DESATURATED TO 76% SUCTIONED AND PUT ON NRB 15L 100%. CLEAN AND KEPT DRY,TURN AND REPOSITIONED TO COMFORT.
[2021-07-18] MEDS: hydrALAZINE HCL 20 MG/ML VIAL IVP PRN ×2 (01:39→06:14)
[2021-07-18] MEDS: KCL 20 mEq in D5/0.45NS 1000mL 1,000 ML IV SCH ×2 (04:31→15:44)
--- NOTE | 2021-07-18 06:24 | NUR ---
ALL CARES DONE BP ELEVATED TO 188/105 HYDRALAZINE 2X DOSE GIVEN PRN. TURN AND REPOSITION .
[2021-07-18 07:02] LABS: BASOPHILS % (AUTO) 0.1 % (0.0-2.0); EOSINOPHILS % (AUTO) 0.2 % (0.0-4.0); HEMATOCRIT 38.3 % (36-54); HEMOGLOBIN 13.1 g/dL (14.0-18.0); LYMPHOCYTES # (AUTO) 0.7 K/uL (1.0-5.5); LYMPHOCYTES % (AUTO) 10.3 % (20.5-51.5); MEAN CORPUSCULAR HEMOGLOBIN 30 pg (27-31); MEAN CORPUSCULAR HGB CONC 34 % (32-36); MEAN CORPUSCULAR VOLUME 87 fL (79.0-98.0); MONOCYTES # (AUTO) 0.5 K/uL (0.0-1.0); NEUTROPHILS # (AUTO) 5.6 K/uL (1.8-7.7); NEUTROPHILS % (AUTO) 82.4 % (40.0-70.0); PLATELET COUNT (AUTO) 182 K/uL (130-430); RED BLOOD CELL COUNT(AUTO) 4.42 MIL/uL (4.2-6.2); RED CELL DISTRIBUTION WIDTH 15.2 % (9.0-15.0); WHITE BLOOD COUNT (AUTO) 6.8 K/uL (4.8-10.8)
--- NOTE | 2021-07-18 07:30 | NUR ---
Recd pt non-verbal, doesnt follow commands, HOB at 30', 02 sats started dropping 77% on venti-mask, so suctioned pt via oral and nasally with removal of thick secretions. pt still de-sating, placed pt on 100% non-rebreather mask. after 1 hour, pt continues to desat 80-85%, RT at the bedside, obtained order to start high-flow vapotherm at 100%, pt had good results, 02 sats 96-100%. Continue to monitor pt closely.
[2021-07-18 08:08] LABS: ALBUMIN 3.1 g/dL (3.4-4.8); CALCIUM 8.9 mg/dL (8.4-11.0); CREATININE 0.64 mg/dL (0.55-1.30); TOTAL BILIRUBIN 0.6 mg/dL (0.0-1.0)
[2021-07-18 08:33] LABS: INR 1.1 (0.80-1.20); PROTHROMBIN TIME 11.3 SECS (9.5-12.5)
[2021-07-18] MEDS: ENOXAPARIN SODIUM 30 MG/0.3 ML SYRINGE SUBCUT SCH (08:58)
[2021-07-18] MEDS: DEXAMETHASONE SOD PHOSPHATE 10 MG/ML VIAL IVP SCH (09:34)
[2021-07-18] MEDS: CHOLECALCIFEROL (VITAMIN D3) 5,000 UNIT TABLET PO SCH (09:35)
[2021-07-18] MEDS: PANTOPRAZOLE SODIUM 40 MG TAB PO SCH (09:35)
[2021-07-18] MEDS: CARVEDILOL 12.5 MG TABLET (COREG) NG SCH (09:36)
[2021-07-18] MEDS: LOSARTAN POTASSIUM 50 MG TABLET (COZAAR) PO SCH (09:36)
[2021-07-18] MEDS: CEFEPIME 0.5 GM in D5W 50 ML IV SCH (09:37)
[2021-07-18] MEDS: BALSAM PERU/CASTOR OIL 56.7 GM OINT...G. TP SCH (09:38)
[2021-07-18] MEDS: THEOPHYLLINE ANHYDROUS 200 MG CAP.ER.24H PO SCH (09:38)
--- NOTE | 2021-07-18 10:00 | NUR ---
Obtained informed consent for PEG placement per md order. Spoke to in detail regarding procedure and she verbalized understanding. Held lovenox this morning for surgery tomorrow.
--- NOTE | 2021-07-18 23:10 | NUR ---
Received call from Patient's Imani Almonte requesting the procedure of Peg placement to be put on hold until she obtains confirmation from other family members. Dr Tabares was contacted and informed as well as nursing production supervisor off shift
[2021-07-19] VITALS (22 sets, daily range): BP systolic 109–189
[2021-07-19] MEDS: CARVEDILOL 12.5 MG TABLET (COREG) NG SCH ×3 (00:11→20:43)
[2021-07-19] MEDS: LOSARTAN POTASSIUM 50 MG TABLET (COZAAR) PO SCH ×3 (00:12→20:43)
[2021-07-19] MEDS: THEOPHYLLINE ANHYDROUS 200 MG CAP.ER.24H PO SCH ×3 (00:13→20:43)
[2021-07-19] MEDS: ENOXAPARIN SODIUM 30 MG/0.3 ML SYRINGE SUBCUT SCH ×3 (00:15→20:47)
[2021-07-19] MEDS: KCL 20 mEq in D5/0.45NS 1000mL 1,000 ML IV SCH (00:16)
[2021-07-19 06:42] LABS: BASOPHILS % (AUTO) 0.1 % (0.0-2.0); EOSINOPHILS % (AUTO) 0.3 % (0.0-4.0); HEMATOCRIT 35.4 % (36-54); HEMOGLOBIN 11.6 g/dL (14.0-18.0); LYMPHOCYTES # (AUTO) 0.9 K/uL (1.0-5.5); LYMPHOCYTES % (AUTO) 11.5 % (20.5-51.5); MEAN CORPUSCULAR HEMOGLOBIN 28 pg (27-31); MEAN CORPUSCULAR HGB CONC 33 % (32-36); MEAN CORPUSCULAR VOLUME 87 fL (79.0-98.0); MONOCYTES # (AUTO) 0.4 K/uL (0.0-1.0); MONOCYTES % (AUTO) 4.8 % (1.7-9.3); NEUTROPHILS # (AUTO) 6.4 K/uL (1.8-7.7); NEUTROPHILS % (AUTO) 83.3 % (40.0-70.0); PLATELET COUNT (AUTO) 148 K/uL (130-430); RED CELL DISTRIBUTION WIDTH 15.2 % (9.0-15.0); WHITE BLOOD COUNT (AUTO) 7.7 K/uL (4.8-10.8)
[2021-07-19] MEDS ORDERED: CEFAZOLIN 1 GM IVPB PREMIX 50 ML IV ONE (07:00)
--- NOTE | 2021-07-19 07:45 | NUR ---
INITIAL BEDSIDE SHIFT REPORT RECEIVED FROM NIGHT RN FOR CONTINUATION OF CARE
[2021-07-19 07:55] LABS: ALBUMIN 2.8 g/dL (3.4-4.8); CALCIUM 9.2 mg/dL (8.4-11.0); CREATININE 0.51 mg/dL (0.55-1.30); POTASSIUM 4.4 mmol/L (3.5-5.1); TOTAL BILIRUBIN 0.3 mg/dL (0.0-1.0)
--- NOTE | 2021-07-19 08:30 | NUR ---
UPDATED PT KEEP DESAT TO 60% ; SXN X3 VIA NOSE & MOUTH; INCREASED TO 40L, PLACED PT ON NBM 15L & NOTIFIED RT
--- NOTE | 2021-07-19 08:45 | NUR ---
RT NOTE: 0845 Pt NTS via nares and also orally prior to placing on BiPAP. Pt is tolerating BiPAP well. Addendum: 07/19/21 at 0915 by Joanie Navarro RT Amended: Links added.
[2021-07-19] MEDS: DEXAMETHASONE SOD PHOSPHATE 10 MG/ML VIAL IVP SCH (09:16)
[2021-07-19] MEDS: PANTOPRAZOLE SODIUM 40 MG TAB PO SCH (09:17)
[2021-07-19] MEDS: CHOLECALCIFEROL (VITAMIN D3) 5,000 UNIT TABLET PO SCH (09:19)
--- NOTE | 2021-07-19 10:15 | NUR ---
RT NOTES Called to bedside per low sat. FIO2 remains @100%, pt appears to desaturate with stimulation. Sat started to improved a few minutes after Rn left bedside.
[2021-07-19] MEDS: BALSAM PERU/CASTOR OIL 56.7 GM OINT...G. TP SCH (10:54)
--- NOTE | 2021-07-19 11:59 | NUR ---
GOALS OF CARE - Had conversation with pts AFTER she spoke with CM. Per pts , there are two physicians that are helping guide her decisions in addition to her family members. They had informed pts that the patient is to high risk for a feeding tube as it might get infected and the benefits DO NOT out weight the complications. Therefore she is declining PEG at this point. Pts just spoke to CM and was informed that without PEG the patient will not be able to ever transfer to a skilled facility or correction care center. The pts said she did not know this. Pts is now going to talk to her family again with this new information and see what they say and get back to us.
--- NOTE | 2021-07-19 12:03 | NUR ---
Pts came to me and said her engineering son vamsi be speaking to Dr. Diaz and Dr. Diaz will make the decision as to whether the PEG will be done or not.
--- NOTE | 2021-07-19 12:20 | NUR ---
I spoke to patient's . She had questions about SNF placement when the patient is medically stable. I explained the patient cannot go to nursing home facility until he is medically stable. He cannot go to SNF with NGT for feedings, he will need a PEG tube in order to go to SNF level of care. She stated she will discuss the PEG tube w/family. Currently the family is opposed to PEG tube placement.
[2021-07-19] MEDS: hydrALAZINE HCL 20 MG/ML VIAL IVP PRN (12:29)
--- NOTE | 2021-07-19 13:30 | NUR ---
RT NOTES Switched mask to space mask to avoid pressure sores. FIO2 TO 0.90. Charge nurse Deja made aware. No adverse reactions noted. Will monitor pt.
--- NOTE | 2021-07-19 19:30 | NUR ---
Received report from AM nurse using SBAR approach.
--- NOTE | 2021-07-19 19:36 | NUR ---
Endorsement Bedside shift report given to night RN for continuity of care
[2021-07-20] VITALS (21 sets, daily range): BP systolic 102–181
--- NOTE | 2021-07-20 04:00 | NUR ---
BM patient had a bowel movement. Changed all his linens and sheets. Patient tolerated well.
[2021-07-20 06:41] LABS: ALBUMIN 2.8 g/dL (3.4-4.8); CREATININE 0.4 mg/dL (0.55-1.30); POTASSIUM 4.4 mmol/L (3.5-5.1); TOTAL BILIRUBIN 0.2 mg/dL (0.0-1.0)
[2021-07-20 06:42] LABS: BASOPHILS % (AUTO) 0.1 % (0.0-2.0); EOSINOPHILS % (AUTO) 0.1 % (0.0-4.0); HEMATOCRIT 34.7 % (36-54); HEMOGLOBIN 11.5 g/dL (14.0-18.0); LYMPHOCYTES # (AUTO) 0.9 K/uL (1.0-5.5); LYMPHOCYTES % (AUTO) 9.7 % (20.5-51.5); MEAN CORPUSCULAR HEMOGLOBIN 29 pg (27-31); MEAN CORPUSCULAR HGB CONC 33 % (32-36); MEAN CORPUSCULAR VOLUME 86 fL (79.0-98.0); MONOCYTES # (AUTO) 0.3 K/uL (0.0-1.0); MONOCYTES % (AUTO) 3.8 % (1.7-9.3); NEUTROPHILS # (AUTO) 7.9 K/uL (1.8-7.7); NEUTROPHILS % (AUTO) 86.3 % (40.0-70.0); PLATELET COUNT (AUTO) 148 K/uL (130-430); RED BLOOD CELL COUNT(AUTO) 4.02 MIL/uL (4.2-6.2); WHITE BLOOD COUNT (AUTO) 9.1 K/uL (4.8-10.8)
--- NOTE | 2021-07-20 07:22 | NUR ---
INITIAL BEDSIDE SHIFT REPORT RECEIVED FROM NIGHT RN FOR CONTINUATION OF CARE
[2021-07-20] MEDS: CHOLECALCIFEROL (VITAMIN D3) 5,000 UNIT TABLET PO SCH (08:48)
[2021-07-20] MEDS: DEXAMETHASONE SOD PHOSPHATE 10 MG/ML VIAL IVP SCH (08:48)
[2021-07-20] MEDS: PANTOPRAZOLE SODIUM 40 MG TAB PO SCH (08:48)
[2021-07-20] MEDS: CARVEDILOL 12.5 MG TABLET (COREG) NG SCH (08:49)
[2021-07-20] MEDS: LOSARTAN POTASSIUM 50 MG TABLET (COZAAR) PO SCH ×2 (08:50→20:47)
[2021-07-20] MEDS: ENOXAPARIN SODIUM 30 MG/0.3 ML SYRINGE SUBCUT SCH ×2 (08:51→20:51)
[2021-07-20] MEDS: THEOPHYLLINE ANHYDROUS 200 MG CAP.ER.24H PO SCH ×2 (09:01→20:49)
[2021-07-20] MEDS: BALSAM PERU/CASTOR OIL 56.7 GM OINT...G. TP SCH (09:01)
[2021-07-20] MEDS: hydrALAZINE HCL 20 MG/ML VIAL IVP PRN ×2 (10:19→17:22)
--- NOTE | 2021-07-20 11:35 | NUR ---
RT NOTES FIO2 TO 0.70. Will monitor pt. Rn made aware.
--- NOTE | 2021-07-20 15:45 | NUR ---
RT NOTES FIO2 TO 0.60. RN made aware. Will monitor pt.
--- NOTE | 2021-07-20 19:20 | NUR ---
Opening Notes: Received bedside report form Daya, patient A&O X1 will open eyes to name, patient on Bipap 60% IP12 EP6, Right upper arm PICC saline locked, on contact precautions for MRSA, COVID isolation was lifted today, north cath, NG tube with Vital AF 1.2 at 60 ml/hr with free water flush of 60 Q6H, peeled and peaked sacral wound, right buttocks skin tear, left ankle, middle back erythema with foam dressing applied during day shift to all areas. bed at the lowest level, call light within reach, brakes are locked, and appropriate side rails up.
--- NOTE | 2021-07-20 19:43 | NUR ---
Endorsement End of shift report given to night RN for continuation of care
--- NOTE | 2021-07-20 20:30 | NUR ---
patient has a left middle finger wound and left pointer finger DTI, applied foam dressing.
[2021-07-20] MEDS: CARVEDILOL 25 MG TABLET (COREG) NG SCH (20:47)
[2021-07-21] VITALS (23 sets, daily range): BP systolic 106–158
--- NOTE | 2021-07-21 06:00 | NUR ---
Patient destated to 78%, RT increased FiO2 to 100%.
--- NOTE | 2021-07-21 06:00 | NUR ---
INCREASED FIO2 TO 100% DUE TO LOW SATS OF 78
[2021-07-21 06:36] LABS: BASOPHILS % (AUTO) 0.4 % (0.0-2.0); EOSINOPHILS % (AUTO) 0.3 % (0.0-4.0); HEMATOCRIT 33.8 % (36-54); HEMOGLOBIN 11.3 g/dL (14.0-18.0); LYMPHOCYTES # (AUTO) 0.7 K/uL (1.0-5.5); LYMPHOCYTES % (AUTO) 8.3 % (20.5-51.5); MEAN CORPUSCULAR HEMOGLOBIN 29 pg (27-31); MEAN CORPUSCULAR HGB CONC 34 % (32-36); MEAN CORPUSCULAR VOLUME 86 fL (79.0-98.0); MONOCYTES # (AUTO) 0.3 K/uL (0.0-1.0); MONOCYTES % (AUTO) 4.1 % (1.7-9.3); NEUTROPHILS # (AUTO) 7.4 K/uL (1.8-7.7); NEUTROPHILS % (AUTO) 86.9 % (40.0-70.0); PLATELET COUNT (AUTO) 140 K/uL (130-430); RED BLOOD CELL COUNT(AUTO) 3.92 MIL/uL (4.2-6.2); RED CELL DISTRIBUTION WIDTH 15.4 % (9.0-15.0); WHITE BLOOD COUNT (AUTO) 8.6 K/uL (4.8-10.8)
[2021-07-21 07:11] LABS: CALCIUM 9.4 mg/dL (8.4-11.0); CREATININE 0.41 mg/dL (0.55-1.30); POTASSIUM 3.9 mmol/L (3.5-5.1)
--- NOTE | 2021-07-21 08:00 | NUR ---
OPENING NOTE RECEIVED BEDSIDE REPORT FROM QAMAR. PT OPENS HIS EYES WHEN SPOKEN TO AND TACTILE. ON BIPAP AT 100% FI02. NG TUBE WITH VITAL AF 1.2 RUNNING AT 60MLS/HR. PT IS CONTRACTED IN ALL EXTREMITIES. LUNG SOUNDS ARE RHONCHI. HOB ELEVATED 45 DEGREES. VITAL SIGNS ARE STABLE AT THIS TIME. 3 BED RAILS UP, BED IN LOWEST POSITION, BRAKES ARE ON. WILL CONTINUE TO MONITOR PT.
[2021-07-21] MEDS: CHOLECALCIFEROL (VITAMIN D3) 5,000 UNIT TABLET PO SCH (08:47)
[2021-07-21] MEDS: DEXAMETHASONE SOD PHOSPHATE 10 MG/ML VIAL IVP SCH (08:47)
[2021-07-21] MEDS: PANTOPRAZOLE SODIUM 40 MG TAB PO SCH (08:48)
[2021-07-21] MEDS: LOSARTAN POTASSIUM 50 MG TABLET (COZAAR) PO SCH ×2 (08:49→20:31)
[2021-07-21] MEDS: THEOPHYLLINE ANHYDROUS 200 MG CAP.ER.24H PO SCH ×2 (08:51→20:31)
[2021-07-21] MEDS: ENOXAPARIN SODIUM 30 MG/0.3 ML SYRINGE SUBCUT SCH ×2 (08:54→20:32)
[2021-07-21] MEDS: BALSAM PERU/CASTOR OIL 56.7 GM OINT...G. TP SCH (08:55)
[2021-07-21] MEDS: CARVEDILOL 25 MG TABLET (COREG) NG SCH ×2 (09:00→20:31)
--- NOTE | 2021-07-21 09:21 | NUR ---
CARVEDILOL HELD DUE TO HR 51
--- NOTE | 2021-07-21 10:43 | NUR ---
UNABLE TO POSITION PT ON RIGHT SIDE. DESAT'S INTO THE 60'S AND 70'S ON BIPAP 100% FI02. PT POSITIONED ON LEFT SIDE. WILL CONTINUE TO REPOSITION EVERY 2 HOURS.
[2021-07-21] MEDS ORDERED: ACETYLCYSTEINE 10% 4 ML VIAL (RT) INH ONE (13:00)
[2021-07-21] MEDS ORDERED: ACETYLCYSTEINE 10% 4 ML VIAL (RT) INH SCH (13:00)
[2021-07-21] MEDS: IPRATROPIUM/ALBUTEROL SULFATE 3 ML AMPUL.NEB (DUONEB) INH SCH ×2 (13:48→19:00)
[2021-07-21] MEDS: ACETYLCYSTEINE 10% 4 ML VIAL (RT) INH SCH ×2 (15:00→19:00)
--- NOTE | 2021-07-21 19:25 | NUR ---
Opening Notes: Received bedside report from Paco, Patient is A&O X 1 will open eyes to name, patient is is on Bipap at FiO2 100%, EDI PICC clean and dry covered with transparent dressing saline lock, no fluid running, peeled and peaked sacral wound, R buttock skin tear, L ankle wound, right big toe (CESAR), middle back redness, L hand middle finger, all covered with foam dressing, NG tube with Vital AF 1.2 at 60 mL/ hr, condom cath, made aware that patient will destat when put on his left side. bed at the lowest level, brakes are locked, call light within reach, appropriate side rails up, suction working.
--- NOTE | 2021-07-21 20:20 | NUR ---
Patients called for an update, informed her the patient is doing good, his O2 has dropped a few times but has come back up within a few minutes. was happy and ended the conversation.
--- NOTE | 2021-07-21 22:10 | NUR ---
Patient started to decline O2 was at 50%, called RT, suctioned patient. He was not responding to interventions. Patient became erna cardiac. Called family an made aware of changes in status at 2330.
--- NOTE | 2021-07-21 22:15 | NUR ---
RT NOTES CALLED TO BEDSIDE DUE TO DESATURATION. SPO2 44%. NTS PERFORMED. SPO2 INCREASED TO 78% POST NTS. PT CONTINUES TO BE ON BIPAP. PT USING ACCESSORY MUSCLES. WHILE AT BEDSIDE PT WENT INTO BRADYCARDIA. NO PULSES PALPATED. [facility] CALLED @ 2248. PT TAKEN OFF BIPAP AND BAGGED WITH 100% O2 VIA AMBU BAG. PT IS CHEMICAL CODE CPR NOT PERFORMED. ROSC NOT ACHIEVED. [facility] CALLED @2301.
--- NOTE | 2021-07-21 22:48 | NUR ---
Patient destated and became bradycardiac. Called code blue, patient was not responding to interventions. Patient is modified code with only bipap and medication interventions. Time of called at [address] Webb.
--- NOTE | 2021-07-21 23:12 | NUR ---
Joseph called the family to make aware of patient . Family said they will be coming to the hospital to see the patient and give all information needed.
--- NOTE | 2021-07-21 23:30 | NUR ---
Called Dr. Castillo to make aware of patients .
--- NOTE | 2021-07-21 23:32 | NUR ---
Called [facility], confirmation code [phone], spoke with Veena.
--- NOTE | 2021-07-21 23:44 | NUR ---
Called [facility], spoke with Stone and not a [facility] case.
== END 2021-07-21 23:01 | DRG 177 ==
LOC: SED 17:29 → STU 22:54 → SIC 07-02 11:14
PROVIDERS: ADMIT Family Medicine; ATTEND Family Medicine
PROC: 5A0945A Assistance with Respiratory Ventilation, 24-96 Consecutive Hours, High Flow/Velocity Cannula (ICD-10-PCS; principal; 2021-07-02)
PROC: XW033H5 Introduction of Tocilizumab into Peripheral Vein, Percutaneous Approach, New Technology Group 5 (ICD-10-PCS; 2021-07-02)
PROC: XW033E5 Introduction of Remdesivir Anti-infective into Peripheral Vein, Percutaneous Approach, New Technology Group 5 (ICD-10-PCS; 2021-07-02)
PROC: 5A0955A Assistance with Respiratory Ventilation, Greater than 96 Consecutive Hours, High Flow/Velocity Cannula (ICD-10-PCS; 2021-07-10)
PROC: 5A0935A Assistance with Respiratory Ventilation, Less than 24 Consecutive Hours, High Flow/Velocity Cannula (ICD-10-PCS; 2021-07-18)
PROC: 5A09457 Assistance with Respiratory Ventilation, 24-96 Consecutive Hours, Continuous Positive Airway Pressure (ICD-10-PCS; 2021-07-19)
DX: U07.1 COVID-19 (principal); J12.82 Pneumonia due to coronavirus disease 2019; J96.01 Acute respiratory failure with hypoxia; E46 Unspecified protein-calorie malnutrition; E87.1 Hypo-osmolality and hyponatremia; Z66 Do not resuscitate; F02.80 Dementia in other diseases classified elsewhere, unspecified severity, without behavioral disturbance, psychotic disturbance, mood disturbance, and anxiety; G20 Parkinson's disease; I10 Essential (primary) hypertension; R13.10 Dysphagia, unspecified; R19.7 Diarrhea, unspecified; E87.5 Hyperkalemia; R00.1 Bradycardia, unspecified; Z22.322 Carrier or suspected carrier of Methicillin resistant Staphylococcus aureus; Z86.73 Personal history of transient ischemic attack (TIA), and cerebral infarction without residual deficits; Z87.891 Personal history of nicotine dependence; Z74.01 Bed confinement status; Z68.23 Body mass index [BMI] 23.0-23.9, adult; Z88.2 Allergy status to sulfonamides; Z79.899 Other long term (current) drug therapy; I46.9 Cardiac arrest, cause unspecified
CPT/HCPCS: 36415; 36600; 71045; 80048; 80053; 82550; 82728; 82803-TC; 82962; 83605; 83615; 83880; 84484; 85025; 85379; 85384; 85610-TC; 85730-TC; 86140; 87040; 87081; 87230-TC; 87635-QW; 92610-GN; 93005; 93306; 94640; 94660; 94760; 96361; 96365; 96368; 96375; 99285; G0378; J0360; J0456; J0690; J0692; J0696; J1100; J1200; J1450; J1650; J2020; J2060; J3262; J7050; J7060; J7608; U0003